=== PATIENT | male | born 1935 | race Caucasian/White ===

== ENCOUNTER → 2016-09-23 | Outpatient (CLI) | payer MEDICARE ==
[~2016-09-23] MED LIST: ACETAMINOPHEN PO; AMIODARONE HCL200 MG PO; AMIODARONE PO; AMLODIPINE BESY10 MG PO; ASPIRIN PO; ASPIRIN81 M2 PO; ATORVASTATIN CA40 MG PO; AVODART0.5 MG PO; BAYER ASPIRIN325 M1 PO; BUMEX PO; CALCIUM ACETAT667 M1 PO; CALCIUM ACETAT667 M2 PO; CARDURA2 MG PO; CHEWABLE ASPIRI81 MG PO; COMBIVENT RESPIM4 GM INH; COMBIVENT14.7 GM INH; DOCU SOFT100 M1 PO; DUTASTERIDE0.5 MG PO; ETHYL CHLORI103.5 ML TOP; FERROUS SULFATE PO; FINASTERIDE5 M1 PO; FINASTERIDE5 MG PO; FLOMAX0.4 M1 PO; FLONASE 0.05% N16 G1; FLOVENT DISKU250 MCG IH; FUROSEMIDE80 MG PO; GLUCOTROL PO; HCTZ PO; HYDRALAZINE HCL25 MG PO; HYDROCHLOROTHIA25 MG PO; ISORDIL PO; ISORDIL TEMBIDS40 M1 PO; ISORDIL10 MG PO; ISOSORBIDE DINI40 MG PO; KADIAN50 MG PO; KEFLEX500 MG PO; LASIX PO; LASIX80 MG PO; LEVAQUIN PO; LIPITOR PO; LIPITOR40 MG PO; LISINOPRIL PO; LISINOPRIL10 MG PO; LISINOPRIL5 MG PO; LODINE500 M1 PO; LOPRESSOR PO; METOPROLOL PO; METOPROLOL SUCC50 MG PO; MIRALAX119 GM PO; MONTELUKAST SOD10 MG PO; MUCOSA400 MG PO; NEURONTIN300 MG PO; NITROGLYCERIN0.4 MG SL; NITROSTAT0.4 MG SL; NORCO1 TAB 10/3 PO; NORVASC PO; OMEPRAZOLE40 M1 PO; OMEPRAZOLE40 MG PO; OXYGEN INH; PHOSLO667 MG PO; PRAVACHOL80 MG PO; PREDNISOLONE5 MG PO; PRILOSEC20 M1 PO; PRINIVIL40 MG PO; PROAIR RESPICL90 MCG; PROTONIX PO; ST. JOSEPH ASP325 MG PO; SYMBICORT INH; TOPROL XL PO; ZOLMITRIPTAN5 MG PO; ZYRTEC5 M2 PO; [UNRECOGNIZED DRUG - OTHER] TOP
--- NOTE | ~2016-09-23 | XA170 ---
[facility] A Service of [facility] RADIOLOGY TEXT RESULTS PATIENT: JOSE CARLOS MORAN LOCATION: [facility] : 36 UNIT #: [id number] AGE: [address]: Medardo Christensen MD SEX: M ORDER DR: [id number] [facility]. [place], [place] [address] [id number] O MR#: [id number] Acc #: [id number] NAME: JOSE CARLOS MORAN. : 1935 SEX: M STUDY DATE/TIME: 09/23/2016 8:14 UNIT: [facility] ROOM: STUDY DESCRIPTION: XA Paracentesis W Image Attending Physician: Medardo Christensen M.D. Ordering Physician: Medardo Christensen M.D. Primary Care Physician: Claudio Gaming M.D. MEDICAL IMAGING REPORT This report is preliminary unless electronic signature is present EXAM Ultrasound-guided paracentesis. DATE OF EXAM 09/23/2016 CLINICAL HISTORY Ascites PROCEDURE Informed consent was obtained and the skin site was selected and marked, sterilely prepped and draped and locally anesthetized. Paracentesis was performed with the [employer] needle catheter and 10.9 L of fluid removed, and there are no complications. IMPRESSION Successful left lower quadrant ultrasound guided paracentesis with removal of 10.9 L of fluid without complication. Dictated by... Jorge Parnell M.D. THIS IS AN ELECTRONICALLY VERIFIED REPORT Jorge Parnell M.D. at 09/28/2016 5:01 PM JOSUE/devon TD: 09/25/2016 21:59 JOB #: [id number] MEDICAL IMAGING REPORT [facility] A Service [facility] RADIOLOGY TEXT RESULTS PATIENT: JOSE CARLOS MORAN LOCATION: [facility] : 36 UNIT #: [id number] AGE: [address]: Medardo Christensen MD SEX: M ORDER DR: COPY
== END | disposition home or self-care (01) ==
LOC: CIVR 07:05
PROC: 0W9G3ZX Drainage of Peritoneal Cavity, Percutaneous Approach, Diagnostic (ICD-10-PCS; principal; 2016-09-23)
DX: R18.8 Other ascites (principal)

== ENCOUNTER → 2016-09-25 | Day surgery (SDC) | payer MEDICARE ==
--- NOTE | ~2016-09-25 | OR ---
Unit #: [id number] #: [id number] Patient: JOSE CARLOS MORAN [id number] [place], [place] [address] [id number] O MR#: [id number] NAME: JOSE CARLOS MORAN. ROOM: Date of Procedure: 09/25/2016 Admission Date: 09/25/2016 Surgeon: Medardo Christensen M.D. : 1935 Attending Physician: Medardo Christensen M.D. Primary Care Physician: Claudio Gaming M.D. OPERATIVE REPORT PROCEDURE PERFORMED Esophagogastroduodenoscopy with biopsy and colonoscopy with snare polypectomy. INDICATIONS FOR PROCEDURE A 80-year-old gentleman with average risk for colorectal cancer, also with cirrhosis of liver, undergoing evaluation for varices as well as colonoscopy. MEDICATIONS Monitored anesthesia. POSTOPERATIVE FINDINGS 1. No varices were seen. Diffuse mild esophagitis along with diffuse gastropathy, biopsies taken. 2. Normal duodenum and distal duodenum. 3. Polyp, cecum x1, about 5 mm, snared and sent for pathology. 4. Large lipoma on the posterior leaf of the ileocecal valve. 5. Rectum, polyp x2, snared and sent for histopathology. 6. Polyp, transverse colon x2, snared and sent for histopathology. They were all about 4 to 6 mm in size. 7. Prep was poor. Some areas not well visualized. PLAN Repeat colonoscopy in 3 years. DESCRIPTION OF PROCEDURE The patient was explained of the procedure, risks, and benefits along with the risks and benefits of anesthesia. He was brought to the endoscopy room. Propofol anesthesia was given. Bite block was placed. The scope was passed down the mouth into the esophagus, stomach, duodenum, and distal duodenum. Findings as described. Biopsies taken in the stomach. Gently, the scope was pulled out. He tolerated it well. At this time, he was turned around and repositioned for colonoscopy. Rectal exam was done, which was normal. Colonoscope was lubricated, passed up the rectum, advanced under direct vision all the way to the cecum. Cecum was identified by ileocecal valve and appendiceal orifice. Multiple polyps were seen. Some areas not well visualized. I retroflexed in the rectum, small hemorrhoids seen. Scope was gently pulled out. He tolerated it well. Unit #: [id number] #: [id number] Patient: JOSE CARLOS MORAN Dictated by... Zulema Engel/romel TD: 09/25/2016 22:20 JOB #: [id number] OPERATIVE REPORT X Medardo Christensen MD X PROCEDURE OPERATIVE NOTE
== END | disposition home or self-care (01) ==
LOC: COPS 07:48
DX: Z12.11 Encounter for screening for malignant neoplasm of colon (principal); K20.9 Esophagitis, unspecified; K29.50 Unspecified chronic gastritis without bleeding; D12.3 Benign neoplasm of transverse colon; K62.1 Rectal polyp; K31.9 Disease of stomach and duodenum, unspecified; D17.79 Benign lipomatous neoplasm of other sites; K74.60 Unspecified cirrhosis of liver; J44.9 Chronic obstructive pulmonary disease, unspecified; I10 Essential (primary) hypertension; I25.2 Old myocardial infarction; Z85.51 Personal history of malignant neoplasm of bladder
CPT/HCPCS: 88305; 88312

== ENCOUNTER 2016-10-09 04:12 | Inpatient (IN) | payer MEDICARE ==
--- NOTE | ~2016-10-09 | CO ---
Unit #: [id number] #: [id number] Patient: JOSE CARLOS MORAN [id number] [facility]. [place], [place] [address] [id number] I MR#: [id number] NAME: JOSE CARLOS MORAN. ROOM: 305 Age: 80 Sex: M Admission Date: 10/09/2016 : 1935 Attending Physician: Anthony Kerns M.D. Primary Care Physician: Claudio Gaming M.D. Consultation Date: 10/13/2016 CONSULTATION REPORT REASON FOR CONSULTATION Followup. DISCUSSION Mr. Lau is a 80-year-old male, seen on 10/13/2016. The patient in room [address] [facility], seen on 10/13/2016. The patient just completed dialysis. He is pleasant and cooperative. Affect bright. Mood good. No agitation or aggression. The patient reports sleeping good. Tolerating medication fairly well. Denied any complaints. REVIEW OF SYSTEMS Complete review of systems unremarkable. MENTAL STATUS EXAMINATION General appearance, the patient dressed in hospital attire, lying comfortably in bed. The patient was cooperative during the dialysis. Attention span and concentration, fair. Speech, regular rate. Oriented in place and person. Mood and affect were labile. Thought process was circumstantial. Thought content, guarded. Recent and remote memory, poor. Language, able to name object. Fund of knowledge, impaired. Insight and judgment, fair to slightly impaired. 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 ASSESSMENT/PLAN 1. Supportive psychotherapy and psychoeducation provided to the patient. 2. Educated about benefits and side effects of medication and course and prognosis of illness. Continue with the current treatment. If needed, consider further adjustment of medication. Dictated by... Cain Carlson M.D. MIKI/romel TD: 10/14/2016 04:54 JOB #: [id number] Unit #: [id number] #: [id number] Patient: JOSE CARLOS MORAN CONSULTATION REPORT Page 1 of 1 X Cain Carlson MD CONSULTATION REPORT
--- NOTE | ~2016-10-09 | CR72 ---
[facility] A Service of [facility] RADIOLOGY TEXT RESULTS PATIENT: JOSE CARLOS MORAN LOCATION: [facility] : 36 UNIT #: [id number] AGE: [address]: Anthony Kerns MD SEX: M ORDER DR: [id number] [facility] [address] [facility]. [place], [place] [address] [id number] I MR#: [id number] Acc #: [id number] NAME: JOSE CARLOS MORAN. : 1935 SEX: M STUDY DATE/TIME: 10/09/2016 6:28 UNIT: [facility] ROOM: 81304 STUDY DESCRIPTION: CR Chest Single View Portable Attending Physician: Anthony Kerns M.D. Ordering Physician: Clark Hernandez D.O. Primary Care Physician: Claudio Gaming M.D. MEDICAL IMAGING REPORT This report is preliminary unless electronic signature is present EXAM Portable chest 10/09/2016 HISTORY 80-year-old male with shortness of air beginning today. COMPARISON Chest 10/09/1978 0424 hours. FINDINGS Frontal chest again demonstrates marked cardiomegaly with mild central vascular congestion. Questionable slight interval worsening of bilateral interstitial opacities. Findings could represent worsening congestive failure. Correlation with clinical symptoms recommended. No pneumothorax. No large pleural effusion. IMPRESSION Stable marked cardiomegaly with associated central vascular congestion. Questionable slight interval worsening of diffuse bilateral interstitial opacities. Findings could represent developing congestive failure in the appropriate clinical setting. Correlation recommended. Dictated by... Bryon Colorado M.D. THIS IS AN ELECTRONICALLY VERIFIED REPORT Bryon Colorado M.D. at 10/09/2016 3:45 PM SKYLER/joey TD: 10/09/2016 09:09 JOB #: [id number] [facility] A Service of [facility] RADIOLOGY TEXT RESULTS PATIENT: JOSE CARLOS MORAN LOCATION: [facility] : 36 UNIT #: [id number] AGE: [address]: Anthony Kerns MD SEX: M ORDER DR: MEDICAL IMAGING REPORT Page 1 of 1 COPY
--- NOTE | ~2016-10-09 | CO ---
Unit #: [id number] #: [id number] Patient: JOSE CARLOS MORAN [id number] [facility]. [place] [address] [id number] [facility]. [place], [place] [address] [id number] I MR#: [id number] NAME: JOSE CARLOS MORAN ROOM: 81513 Age: 80 Sex: M Admission Date: 10/09/2016 : 1935 Attending Physician: Anthony Kerns M.D. Primary Care Physician: Claudio Gaming M.D. CONSULTATION REPORT REASON FOR CONSULT Elevated troponin. HISTORY OF PRESENT ILLNESS This is a 79-year-old white male well known to Dr. Yo who presented to the emergency room via EMS after his called daughter. She woke up at 3 a.m. to him moaning and went in to check on him and he was unresponsive. He had altered mental status change. His eyes were open and glassed over. He would not talk to her. All he would do was moan. He would not really move. Apparently, earlier in the night around 11 o'clock he was watching the [employer] basketball games and he was fine. He went to bed and then his daughter awoke hearing noises from his room and went to check on him. He was, as stated above, had altered mental status change. She was worried and called 911. On arrival to the emergency room, it was found that his troponin was 0.10 and, on repeat, troponin 0.11. He did test positive for influenza A. Head CT was unremarkable. Lactic level was 5.2. However, to note, he is afebrile. Temperature, on arrival to the emergency room, was 97.2. Blood pressure on arrival was elevated at 179/76. During my examination, it had returned to normal 107/57. This gentleman has a previous medical history of permanent AFib but is not on anticoagulation due to chronic anemia, frequent falls and noncompliance. He has tachybrady syndrome, history of nonsustained V-tach, hyperlipidemia, hypotension secondary to hemodialysis, chronic kidney disease stage [address] Mederos. He is on hemodialysis Tuesdays, and Saturdays. He has had a history of a PA in the past, systolic CHF, anemia of chronic disease, chronic liver cirrhosis secondary to remote alcohol abuse and he gets monthly paracentesis. The last paracentesis was two weeks ago. He is a formed tobacco abuser. He quit smoking four years ago. He also has a history of bladder cancer, COPD and his home O2 dependent at home. Please note that he has a history of type 2 diabetes. He had an echo, August of 2015, which showed mildly reduced LV function. EF was 45 to 50% with moderate TR and an increased right ventricular systolic pressure. RVSP was 54.9 mmHg. SOCIAL HISTORY He lives with his daughter who provides care for him. However, he is able to drive himself to dialysis three times a week. Otherwise, he is pretty immobile at home. He goes from his bed to a chair. His daughter states he does not really ambulate at all. He is a former smoker. He quit four years ago. There is remote history of alcohol abuse. Unit #: [id number] #: [id number] Patient: JOSE CARLOS MORAN FAMILY HISTORY Noncontributory. ALLERGIES None. HOME MEDICATIONS 1. Isosorbide dinitrate extended release 40 mg b.i.d. 2. Aspirin 325 mg daily. 3. Calcium 660 mg four tablets three times a day. He takes it with meals. 4. Atorvastatin 40 mg at bedtime. 5. Finasteride 5 mg at bedtime. 6. Dutasteride 0.5 mg which is Avodart one time daily at bedtime. 7. Lisinopril 5 mg daily. 8. Symbicort 160/4.5 mcg b.i.d. 9. Combivent Respimat 4 g three times a day. 10. Nitrostat as needed which is 0.4 mg tablets sublingually. REVIEW OF SYSTEMS A complete 10-point review of systems is done. He denied any chest pain. He denied any shortness of breath other than what is chronic and normal for him. He denies palpitations. He denies any memory of having altered mental status. He is currently in restraints and his confused why he needs to be in restraints. He does report dyspnea on exertion. He reports no orthopnea and he is pretty much laying flat in the ER and is not having any trouble breathing. He denies any dizziness. He denies any syncope. He denies any bilateral lower extremity swelling. He does state he has abdominal distension which is chronic in nature and he told me that he had a paracentesis two weeks ago. PHYSICAL EXAMINATION GENERAL APPEARANCE: He is in isolation and was seen in T5 down in the ER. He was in restraints at the time. Neurally, he did answer appropriately most questions and he does follow commands. He is awake and alert. He has kind of a poor memory. VITAL SIGNS: Temperature 98.4. Heart rate 72. Respirations 26. Blood pressure 107/57. His admission weight was 7.27 kg. His BMI is 22. HEENT: Head is normocephalic, atraumatic. Pupils are equal, round and reactive to light and accommodation. Extraocular movements seem to be intact. Oral mucosa membrane was dry. Poor dentition. NECK: Supple with no JVD noted. No thyromegaly but a faint right carotid bruit heard. LUNGS: Bilaterally diminished in the bases with poor inspiratory effort. CARDIOVASCULAR: Irregularly irregular rhythm. He does have a 2/6 systolic ejection murmur heard best at the apex. ABDOMEN: Rounded and distended but it is soft and he states that it is not tender at all to palpation. He does have positive bowel sounds. EXTREMITIES: No edema. DIAGNOSTIC STUDIES LABORATORY: CK MB 9.1. Troponin 0.10 and 0.11 on repeat. PT 11.6, INR 1.1. Sodium 138, potassium 3.2, chloride 99, CO2 22, BUN 29, creatinine 4.7, glucose 183. Hemoglobin 9.4, hematocrit 31.5, WBC 9.1, platelet count 140. Influenza A was positive and lactate was 5.2. IMAGING: CT of the head was unremarkable. Chest x-ray, 10/09/16, showed no active disease. Stable marked cardiomegaly. Unit #: [id number] #: [id number] Patient: JOSE CARLOS MORAN CARDIOVASCULAR: EKG, 10/09/16, showed AFib with a right bundle branch block. IMPRESSION 1. Toxic versus metabolic encephalopathy. 2. Sepsis. 3. End-stage renal disease. 4. Permanent AFib. 5. Chronic liver cirrhosis. 6. Elevated troponin. 7. Hypokalemia. 8. Altered mental status. 9. History of tachybrady syndrome. 10. Hyperlipidemia. PLAN Cardiology has been asked to follow him for elevated troponin. We will trend his troponin; however, he does not have any chest pain or any symptoms of angina at this time and his EKG was unremarkable for any ST elevation or depression. His AFib is rate controlled and he is not on anticoagulation chronically. However, we will start Lovenox 1 mg/kg subcu b.i.d. and full strength aspirin while he is in the hospital. I will check a fasting lipid panel. He is on atorvastatin 40 mg at home. I will continue that dose. We will check an EKG, troponin, BMP, mag in the morning. Check a 2D echo today. Currently, he is restrained. I feel like those restraints could probably come off today. The nurse reports that he will get out of bed so we will leave those restraints on. Lisinopril 5 mg daily which is his home dose. We will need to hold that for systolic less than 100. However, he was very hypertensive when he arrived. I just want to be cautious with his advanced age and the fact that he is on dialysis. Fluid status and blood pressure would be concerning. Currently, he has a catheter. I have written to discontinue the catheter for the fact that he is in end-stage renal disease and probably does not make enough urine to really support indwelling catheter placement for risk of infection. He can eat a Heart Healthy diet. I also wrote to get a bilateral carotid Doppler ultrasound for his altered mental status change. Further plan per Dr. Yo. Thank you for this consult. We will continue to follow him through hospitalization. Also, further plan status post results that are pending. Dictated by... Barbie Vásquez APRN for Zulema Gusman TD: 10/09/2016 12:25 JOB #: [id number] Unit #: [id number] #: [id number] Patient: JOSE CARLOS MORAN CONSULTATION REPORT Page 1 of 1 X X CONSULTATION REPORT
--- NOTE | ~2016-10-09 | DS ---
Unit #: [id number] #: [id number] Patient: JOSE CARLOS MORAN [id number] [place], [place] [address] [id number] I MR#: [id number] NAME: JOSE CARLOS MORAN. ROOM: 305 Age: 80 Sex: M Admission Date: 10/09/2016 : 1935 Discharge Date: 10/13/2016 Attending Physician: Anthony Kerns M.D. Primary Care Physician: Claudio Gaming M.D. DISCHARGE SUMMARY REASON FOR ADMISSION Mental status change. HISTORY OF PRESENT ILLNESS/HOSPITAL COURSE The patient is a 80-year-old male, one day prior to admission was watching a basketball game, went to sleep, and woke up at 4:30 a.m. in acute confusional state. He was walking with a very different gait and subsequently was brought to the hospital for further evaluation. Initial CT of the head showed no acute process. Stroke protocol was initiated. Dr. rOr was subsequently consulted. The patient underwent ultrasound of his bilateral carotids on 10/09/2016, which did reveal plaque with narrowing of the right internal carotid artery 50% to 69%. There was left mid internal carotid artery with similar stenosis 50% to 69% seen. Vascular Services were consulted, they recommended outpatient 6-month followup for routine monitoring. He was also noted to be flu A positive. He was maintained on Tamiflu initially. Concern for possible acute respiratory failure as well as the pneumonia was made secondary to his mental status changes, we placed consultation to [facility] for further evaluation. Initially, placed on IV antibiotics as well as Tamiflu and eventually these were discontinued. His initial chest x-ray raised the possibility of heart failure/fluid overload versus bibasilar infiltrates. IV antibiotics were later discontinued. Consultation was also placed to Nephrology Services as the patient is on routine hemodialysis. He underwent hemodialysis per routine care. Dr. Mederos saw and evaluated the patient while he was here. He does have a prior history of cirrhosis as well as recurrent ascites. He underwent paracentesis per his normal routine as well, it was approximately 9 L which was removed. He was also noted to have elevated troponin levels consistent with NSTEMI, his peak troponin I believe was 0.77. In regard to the same, we placed consultation to Cardiology Services secondary to associated comorbid conditions as well as chronic medical conditions and recommendation was made for cardiac catheterization. The patient refused and stated that he was otherwise well and he did not want Unit #: [id number] #: [id number] Patient: JOSE CARLOS MORAN any further studies. At this point in time, he is now alert and oriented x3. He is mobile within the room. PT and OT services have now cleared him. He is currently breathing on room air. He has been treated for influenza A with a 5-day course. His antibiotics have been discontinued. It seems more likely fluid overload as the cause of the abnormality seen on initial chest x-ray. He does have a prior history of permanent atrial fibrillation, but he is a poor anticoagulation candidate secondary to chronic deconditioning. Cardiology, Renal, Pulmonary as well as Vascular Services have all felt the patient is now stable for discharge. Overall his long-term prognosis is guarded. FINAL DISCHARGE DIAGNOSES 1. Toxic metabolic encephalopathy. 2. Influenza A. 3. Bibasilar atelectasis versus pneumonia. Currently, no antibiotics needed. 4. Permanent atrial fibrillation. 5. Fluid overload. 6. End-stage renal disease. 7. Ascites. 8. Cirrhosis. 9. Status post paracentesis this hospital admission with 900 mL removed. 10. Systolic heart failure with an ejection fraction of 40% to 45%. 11. Nonsustained ventricular tachycardia seen on heart monitor. 12. Peak troponin/qsa-LR-vsljzhe elevation myocardial infarction of 0.78. 13. Likely mild cognitive impairment. FINAL DISCHARGE MEDICATIONS Amiodarone 200 mg p.o. b.i.d. x7 days then daily, Lipitor 40 mg p.o. q.h.s., lisinopril 5 mg p.o. daily, Avodart 0.5 mg p.o. q.h.s., aspirin 81 mg p.o. daily, finasteride 5 mg p.o. q.h.s., calcium acetate 667 mg p.o. t.i.d. with meals. DISCHARGE CONDITION Stable. DISCHARGE DISPOSITION Home. FOLLOWUP PCP in 7 to 10 days. Follow up with Vascular Services for bilateral carotid ultrasound 6 months. Follow up Cardiology in 4 to 6 weeks. Dictated by... Anthony Kerns M.D. JULI/romel TD: 10/14/2016 00:29 JOB #: [id number] Unit #: [id number] #: [id number] Patient: JOSE CARLOS MORAN Nic DISCHARGE SUMMARY Page 1 of 1 X Anthony Kerns MD X DISCHARGE SUMMARY
--- NOTE | ~2016-10-09 | CR72 ---
[facility] A Service of [facility] RADIOLOGY TEXT RESULTS PATIENT: JOSE CARLOS MORAN LOCATION: [facility] 305- : 36 UNIT #: [id number] AGE: [address]: Anthony Kerns MD SEX: M ORDER DR: [id number] [facility] [address] [facility]. [place], [place] [address] [id number] I MR#: [id number] Acc #: [id number] NAME: JOSE CARLOS MORAN. : 1935 SEX: M STUDY DATE/TIME: 10/10/2016 3:38 UNIT: [facility] ROOM: [facility] STUDY DESCRIPTION: CR Chest Single View Portable Attending Physician: Anthony Kerns M.D. Ordering Physician: Mamadou Garrett M.D. Primary Care Physician: Claudio Gaming M.D. MEDICAL IMAGING REPORT This report is preliminary unless electronic signature is present EXAM Frontal chest, 10/10/2016. INDICATION 80-year-old male with influenza-A, shortness of air, confusion, altered mental status since yesterday. Stage IV renal disease. TECHNIQUE Frontal chest was performed and compared with 10/09/2016. FINDINGS The heart is enlarged and stable. The aorta demonstrates atherosclerotic change. There are worsening more confluent opacities in the midlung zone on the right, suspicious for pneumonia. There is old healed granulomatous disease. No distinct evidence of volume overload or effusion and no pneumothorax. IMPRESSION Findings suspicious for developing pneumonia in the midlung zone on the right. Persistent cardiomegaly. No pneumothorax. Dictated by... Aftab Stark M.D. THIS IS AN ELECTRONICALLY VERIFIED REPORT Aftab Stark M.D. at 10/10/2016 10:12 PM NEO/ronnie TD: 10/10/2016 15:18 JOB #: [id number] [facility] A Service of [facility] RADIOLOGY TEXT RESULTS PATIENT: JOSE CARLOS MORAN LOCATION: [facility] 305-01 : 36 UNIT #: [id number] AGE: [address]: Anthony Kerns MD SEX: M ORDER DR: MEDICAL IMAGING REPORT Page 1 of 1 COPY
--- NOTE | ~2016-10-09 | CO ---
Unit #: [id number] #: [id number] Patient: SID MORAN [id number] [facility] [address] [facility]. [place], [place] [address] [id number] I MR#: [id number] NAME: SID MORAN. ROOM: 305 Age: 80 Sex: M Admission Date: 10/09/2016 : 1935 Attending Physician: Anthony Kerns M.D. Primary Care Physician: Claudio Gaming M.D. Consultation Date: 10/11/2016 CONSULTATION REPORT REASON FOR CONSULTATION Confusion, agitation. HISTORY OF PRESENT ILLNESS Mr. Sid Swan is a 80-year-old male, seen on 10/11/2016 at [facility] in room 305. The patient was pleasant and cooperative during interview. Still having problem with confusion, mood lability, but able to answer questions. When the patient was admitted on 10/09/2016, he was very confused, staring, guarded, paranoid, also obtained information from the patient's daughter who was at the bedside. The patient's daughter reports having problem with mood lability and agitation increase lately. She reported that he was mentally very clear and no problem with his memory, but there was a sudden decline in mental state. Then, the patient was admitted to hospital. The patient at that time was talking to various people in the room, who were not present, attending to internal stimuli, increasingly confused which seems to be getting better. The patient currently denied any thoughts of harming self or others. Denied any auditory or visual hallucination. PAST PSYCHIATRIC HISTORY Unremarkable for any history of dementia, depression, anxiety. MEDICAL HISTORY Remarkable for history of end-stage renal disease, hypertension, prior history of atrial fibrillation, diabetes type 2, prior history of bladder cancer, prior history of myocardial infarction, hyperlipidemia. MEDICATION HISTORY The patient is on lisinopril, Nitrostat, oxygen, calcium, Avodart, Lipitor, finasteride, hydralazine, and Isordil. ALLERGIES No known drug allergies. FAMILY HISTORY AND SOCIAL HISTORY The patient lives at home, has a good support from his daughter. No history of any abuse. No history of any substance abuse. REVIEW OF SYSTEMS Complete review of systems is unremarkable. MENTAL STATUS EXAMINATION General appearance, the patient dressed in hospital attire, lying comfortably. Attention span and concentration were poor. Speech, loud. Unit #: [id number] #: [id number] Patient: SID MORAN Oriented in place and person. Mood and affect were labile. Thought process was circumstantial. Thought content, the patient denied any thoughts of harming self or others, but somewhat guarded. Recent and remote memory, fair to poor. Language, able to name object and repeat phrases. Fund of knowledge, fair to slightly impaired. Insight and judgment, fair to slightly impaired. DIAGNOSES Psychiatric: 1. Delirium, F05, improving. 2. Psychosis, not otherwise specified, F29.0. 3. 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 Secondary diagnosis: Deferred. Medical diagnosis: Please refer to H and P. Stressors: Psychosocial stressors. ASSESSMENT/PLAN 1. Supportive psychotherapy and psychoeducation provided to patient and family. 2. Advised to continue with current treatment with a plan to add Haldol 0.5 mg at bedtime. If needed, plan to adjust the medication further to help with the above-mentioned symptoms of delirium/psychosis. We will continue to follow. If needed, consider further adjustment of medication. Please feel free to call if any questions, telephone #[phone]. Dictated by... Zulema Bocanegra/romel TD: 10/12/2016 02:54 JOB #: [id number] CONSULTATION REPORT Page 1 of 1 X Cain Carlson MD X CONSULTATION REPORT
--- NOTE | ~2016-10-09 | CR72 ---
[facility] A Service of [facility] RADIOLOGY TEXT RESULTS PATIENT: JOSE CARLOS MORAN LOCATION: [facility] 305-01 : 36 UNIT #: [id number] AGE: [address]: Anthony Kerns MD SEX: M ORDER DR: [id number] [facility] [address] [facility]. [place], [place] [address] [id number] I MR#: [id number] Acc #: [id number] NAME: JOSE CARLOS MORAN. : 1935 SEX: M STUDY DATE/TIME: 10/09/2016 4:24 UNIT: CEDOF ROOM: 03196 STUDY DESCRIPTION: CR Chest Single View Portable Attending Physician: Anthony Kerns M.D. Ordering Physician: Clark Hernandez D.O. Primary Care Physician: Claudio Gaming M.D. MEDICAL IMAGING REPORT This report is preliminary unless electronic signature is present EXAM AP portable chest, 10/12/2016 HISTORY 80-year-old male in the ED with acute onset mental status changes this evening. TECHNIQUE AP portable chest x-ray. FINDINGS Marked cardiomegaly is stable along with central pulmonary artery enlargement. No definite acute pulmonary infiltrate or pleural effusion. Benign calcified granulomas right midlung and right hilum. IMPRESSION No definite active disease. Stable marked cardiomegaly. Dictated by... José Esteban M.D. THIS IS AN ELECTRONICALLY VERIFIED REPORT José Esteban M.D. at 10/13/2016 5:01 PM Natalie TD: 10/09/2016 08:33 JOB #: [id number] MEDICAL IMAGING REPORT Page 1 of 1 COPY
--- NOTE | ~2016-10-09 | EE ---
Unit #: [id number] #: [id number] Patient: JOSE CARLOS MORAN [id number] [address] [place], [place] [address] [id number] I MR#: [id number] NAME: JOSE CARLOS MORAN. : 1935 SEX: M STUDY DATE/TIME: UNIT: C3A PCU ROOM: 305 STUDY DESCRIPTION: EEG Attending Physician: Anthony Kerns M.D. Referring Physician: Cecily Ritchie A.P.R.N. Primary Care Physician: Claudio Gaming M.D. NEURODIAGNOSTICS REPORT EXAM EEG REASON FOR THE STUDY Episode of confusion. EEG DESCRIPTION This is an inpatient, digitally recorded multi-montage adult EEG with leads placed according to the International 10-20 System. Hyperventilation and photic stimulation was not done. With the patient fully aroused, there is 8 to 8.5 Hz posterior background. The patient did become drowsy and later on stage 2 sleep was seen. No clearcut interictal discharges or clinical events were seen. Some transients and artifacts were seen but nothing really suggesting clearcut epileptiform discharges. Hyperventilation and photic stimulation was not done. IMPRESSION This is essentially a normal adult awake and asleep EEG. An EEG like this does not rule out epilepsy. Clinical correlation is recommended. Dictated by... Zulema Pacheco/inge TD: 10/12/2016 10:20 JOB #: [id number] NEURODIAGNOSTICS REPORT Page 1 of 1 X Orlando Orr MD NEURODIAGNOSTICS REPORT
--- NOTE | ~2016-10-09 | HP ---
Unit #: [id number] #: [id number] Patient: JOSE CARLOS MORAN [id number] [address] [place], [place] [address] [id number] I MR#: [id number] NAME: JOSE CARLOS MORAN. ROOM: [facility] Age: 80 Sex: M Admission Date: 10/09/2016 : 1935 Attending Physician: Anthony Kerns M.D. Primary Care Physician: Claudio Gaming M.D. HISTORY AND PHYSICAL REASON FOR ADMISSION Mental status change. HISTORY OF PRESENT ILLNESS The patient is a 80-year-old male, who apparently last night, was watching the basketball games in his usual state of health, perhaps consider a baseline to be alert and oriented x2. He subsequently went to sleep earlier this morning around 4:30 a.m. He began having altered mental status, increased confusion. Daughter found him to be talking to various people in the room who were not present. She became concerned for possible underlying infectious etiology or otherwise in consideration of stroke and subsequently, the patient was brought to the emergency room for evaluation. Initially, the patient was evaluated in the emergency room, underwent CT of head, which had not shown any acute process. Review was performed with Dr. Orr of Neurology Services, who recommended admission for further observation. Initial laboratory studies, however, yielded chest x-ray showing bilateral infiltrates, influenza A positive, as well as an elevated lactic acid level of 5.2. Also noted was his creatinine that was 4.7 with a GFR of 11. He is a hemodialysis patient, followed by Dr. Hawk as an outpatient. PAST MEDICAL HISTORY End-stage renal disease, hypertension, prior history of atrial fibrillation, diabetes, type 2, prior history of bladder cancer, prior history of myocardial infarction, hyperlipidemia. PAST SURGICAL HISTORY Bladder cancer/tumor removal, right inguinal hernia repair, left arm shunt, bilateral cataract surgery. HOME MEDICATIONS Isordil, hydralazine, aspirin, calcium, Avodart, Lipitor, finasteride, lisinopril, Nitrostat, oxygen. ALLERGIES No known drug allergies. SOCIAL HISTORY The patient resides at home per report. Unit #: [id number] #: [id number] Patient: JOSE CARLOS MORAN FAMILY HISTORY Reviewed, noncontributory, nonpertinent. REVIEW OF SYSTEMS As noted above in the HPI. Please note, there is currently no family members were present at bedside and therefore both history and physical exam, past medical history, as well as review of systems has been put together after chart review, as well as discussion with ER staff. PHYSICAL EXAMINATION VITAL SIGNS: Temperature 97.7, pulse 86, respiratory rate 20, blood pressure 139/76. GENERAL APPEARANCE: The patient is a frail, 80-year-old male, who is confused, disoriented and trying to get out of bed. HEENT: Head exam; atraumatic, normocephalic. Ear exam; tympanic membranes are pearly. No erythema or injection. NECK: Supple. CVS: S1, S2. Irregularly irregular. RESPIRATORY: Coarse. GI/ABDOMEN: Nontender, nondistended. LOWER EXTREMITY: No calf tenderness. No edema noted. PSYCHIATRIC: The patient is alert. He is combative in nature. He does not answer appropriately. DIAGNOSTIC STUDIES LABORATORY RESULTS: At the time of admission, please see above. INITIAL ADMISSION DIAGNOSES 1. Acute encephalopathy/mental status change, likely multifactorial in origin secondary to underlying uremia, possible sepsis, and bilateral pneumonia. 2. History of end-stage renal disease, on dialysis, followed by Dr. Hawk. 3. Atrial fibrillation/coronary artery disease/myocardial infarction history, followed by [facility]. 4. chronic obstructive pulmonary disease, end stage, on home O2. 5. Hyperlipidemia. 6. Prior history of bladder cancer. 7. Presumed aspiration pneumonia. 8. Elevated lactic acid level on admission. 9. Systemic inflammatory response syndrome criteria. 10. Influenza A. 11. Anemia, likely of chronic disease. 12. Elevated troponin/non-ST segment elevation myocardial infarction. PLAN Hospital admission, ICU, begin HCAP protocol, sepsis protocol. Consultations have been already placed to Dr. Yo, Dr. Ahumada, Dr. Orr, Dr. Hawk, in consideration of above. No family members are currently present. I do not have a clear code status on this patient. I will wait for family members to arrive and then further hospital course to follow. Dictated by uZlema MillerN/haileyl Unit #: [id number] #: [id number] Patient: JOSE CARLOS MORAN TD: 10/10/2016 05:45 JOB #: [id number] HISTORY AND PHYSICAL Page 1 of 1 X Anthony Kerns MD X HISTORY AND PHYSICAL
--- NOTE | ~2016-10-09 | CO ---
Unit #: [id number] #: [id number] Patient: JOSE CARLOS SAINZ [id number] [address] [place], [place] [address] [id number] I MR#: [id number] NAME: JOSE CARLOS SAINZ. ROOM: 305 Age: 80 Sex: M Admission Date: 10/09/2016 : 1935 Attending Physician: Anthony Kerns M.D. Primary Care Physician: Claudio Gaming M.D. Consultation Date: 10/12/2016 CONSULTATION REPORT REASON FOR CONSULTATION Carotid stenosis. HISTORY OF PRESENT ILLNESS Mr. Sainz is the patient known to us. He is a 80-year-old male with a history of chronic kidney disease. He underwent creation of a left brachiocephalic fistula by Dr. Roper. He was admitted with confusion and decreased level of consciousness as part of his evaluation. He underwent carotid duplex demonstrating stenosis. He also has a history of cirrhosis and will be undergone paracentesis and was also identified with flu. He denies any symptoms to suggest TIA, CVA, or amaurosis including slurred speech, facial droop, unilateral numbness or weakness, or sudden loss of vision. PAST MEDICAL HISTORY 1. Atrial fibrillation. 2. Chronic kidney disease. 3. Hypertension. 4. COPD. 5. Type 2 diabetes mellitus. 6. History of bladder cancer. 7. Coronary artery disease. 8. Hyperlipidemia. PAST SURGICAL HISTORY 1. Surgical repair for bladder cancer. 2. Right inguinal repair. 3. Left brachiocephalic fistula by Dr. Roper. 4. Cataract surgery. REVIEW OF SYSTEMS Review of systems was completed. The patient was eating lunch and did not want to answer many questions. CONSTITUTIONAL: Feeling better. HEENT: Positive for cataract surgery. PULMONARY: Positive for occasional shortness of air. CARDIAC: Negative. MUSCULOSKELETAL: Negative. NEUROLOGIC: Negative for symptoms of TIA or CVA. GI: Positive for abdominal pain. : Negative. SKIN: Negative for sores or rashes. Unit #: [id number] #: [id number] Patient: JOSE CARLOS SAINZ SOCIAL HISTORY He is a previous smoker, no longer smoked. Lives here in [place]. Denies alcohol or drug use. FAMILY HISTORY Positive for diabetes, hypertension, and cancer. Mother has a history of cancer and father has a history of tuberculosis. ALLERGIES No known drug allergies. MEDICATION Isosorbide dinitrate, aspirin, calcium, atorvastatin, finasteride, Zemplar, Symbicort, Combivent, and Nitrostat. PHYSICAL EXAMINATION VITAL SIGNS: Temperature is 97.4, pulse 64, respirations 17, blood pressure is 122/59. HEENT: Eyes; shows no injection of conjunctivae. Small eyelids. Ear, nose, mouth and throat; he has moist mucous membranes without pallor or cyanosis. Teeth are in poor repair. NECK: There is no JVD. LUNGS: Clear. There are no use of accessory muscles or intercostal retractions. HEART: S1 and S2. Regular rate and rhythm without murmur. VASCULAR: He has bilateral cervical bruits. There is no pulsatile abdominal mass. Radial pulses are palpable. Bilateral femoral pulses are palpable. Right popliteal pulse is palpable. Left popliteal pulse is not palpable. Pedal pulses not palpable on either side. ABDOMEN: Soft without hepatosplenomegaly. SKIN: No hemosiderin deposition or stasis dermatitis or wider dermatosclerosis. No wounds or ulcerations to the lower extremities. Left brachiocephalic fistula has a good thrill. NEUROLOGIC: He is alert, oriented, answers questions appropriately. No focal neuro deficits. MUSCULOSKELETAL: He moves all extremities well without atrophy or abnormal movements. DIAGNOSTIC STUDIES IMAGING STUDIES: Carotid duplex was completed. There is 50% to 69% stenosis of the bilateral internal carotid arteries. Vertebrals are patent with antegrade flow. LABORATORY RESULTS: BUN is 37, creatinine 6.5, GFR 7.4, sodium 140, potassium 5.0. PT is 11.4, INR is 1.1, PTT is 27.1. Hemoglobin is 8.5, hematocrit 28.2, platelets 101, white blood cells are 4.7. IMPRESSION 1. Bilateral asymptomatic carotid stenosis. 2. Cirrhosis. 3. Chronic obstructive pulmonary disease. 4. Chronic kidney disease, status post left arm fistula. RECOMMENDATIONS From stenosis is asymptomatic, it is not high enough to require repair at this time. He is advised to continue not to smoke. He should be on anti-platelet and certain therapy to decrease his risk of neurologic events. He should follow up with Dr. Obrien as an outpatient in 6 months Unit #: [id number] #: [id number] Patient: JOSE CARLOS SAINZ with repeat bilateral carotid ultrasound. Thank you for allowing us to assist in this patient's care. Dictated by... Valencia MirelesPMargaretRLulu for Zulema Ernandez/romel TD: 10/13/2016 04:14 JOB #: [id number] CONSULTATION REPORT Page 1 of 1 X X CONSULTATION REPORT
--- NOTE | ~2016-10-09 | CO ---
Unit #: [id number] #: [id number] Patient: JOSE CARLOS SAINZ [id number] [address] [place], [place] [address] [id number] I MR#: [id number] NAME: JOSE CARLOS SAINZ ROOM: 99844 Age: 80 Sex: M Admission Date: 10/09/2016 : 1935 Attending Physician: Anthony Kerns M.D. Primary Care Physician: Claudio Gaming M.D. CONSULTATION REPORT Mr. Sainz presents with decreased mentation to the emergency room. He had been in his normal health before he became more agitated. He was found crawling in his bed, agitated. He came to the emergency room. Chest x-ray showed cardiomegaly, some mild increased infiltrates. His vital signs revealed O2 saturation on 2 L at 95%, blood pressure is 179/76, pulse was 86, respiratory rate was 20, temperature was 97.7. He apparently was given some Ativan and some Zofran, started on Rocephin, clindamycin and vancomycin. Arterial blood gases revealed a pH of 7.33, pCO2 of 47, pO2 of 81 on 50% Venturi mask. Chemistries were significant for creatinine of 4.7, potassium of 3.2, glucose 183, calcium 8.1, troponin 0.08, ammonia level of 23, lactic acid of 5.2. Acetaminophen, salicylate and alcohol levels were negative. Coags were normal. Troponin was 0.11. White blood cell count was 9100, hematocrit 31.5, platelet count normal. Flu study positive for influenzae A. Urinalysis not done. PAST MEDICAL HISTORY Significant for: 1. COPD with chronic respiratory failure. 2. End stage renal disease, on hemodialysis. 3. Hypertension. 4. Hyperlipidemia. 5. Diabetes. 6. History of bladder cancer - recent cystoscopy negative for recurrence. 7. History of chronic systolic congestive heart failure, ejection fraction about 45%. 8. History of nonsustained V-tach. 9. History of tachybrady syndrome, not on anticoagulation due to falls. 10. Permanent A-fib. 11. Ascites. PAST SURGICAL HISTORY 1. Cystoscopy with biopsy. 2. Inguinal hernia repair. ALLERGIES None known. MEDICATIONS Home medications listed include: 1. Isosorbide dinitrate. 2. Aspirin. 3. Calcium. 4. Atorvastatin. Unit #: [id number] #: [id number] Patient: JOSE CARLOS SAINZ 5. Finasteride. 6. Dutasteride. 7. Lisinopril. 8. Symbicort. 9. Combivent. 10. Nitrostat. SOCIAL HISTORY He is a reformed smoker. No alcohol in four years. Denies illicit drug use. FAMILY HISTORY Mother had cancer, father tuberculosis. REVIEW OF SYSTEMS CONSTITUTIONAL: Denies fever or chills. Denies much in the way of shortness of breath. Denies hemoptysis. CARDIAC: Denies chest pain or palpitations. GI: Denies nausea or vomiting. : No hematuria or dysuria. He has renal failure, on hemodialysis. NEURO: No unilateral weakness or numbness. SKIN: No rashes, no swollen joints. PHYSICAL EXAMINATION GENERAL: White male, obese, in no distress. VITAL SIGNS: Blood pressure 127/66, pulse 80, respiratory rate 16, afebrile. HEENT: Normocephalic, atraumatic. Pupils equal, round, reactive. Sclerae nonicteric. Nasal passages patent. Mucous membranes dry. Mallampati 3. NECK: Supple. Trachea midline. No cervical or supraclavicular lymphadenopathy. LUNGS: Fairly clear to a auscultation and percussion. CARDIAC: Irregular rate and rhythm. Could not appreciate murmur, rub or gallop. ABDOMEN: Nontender. Bowel sounds present. Markedly distended but nontender. Fluid wave felt. EXTREMITIES: Without clubbing, cyanosis or edema. NEURO: Awake, oriented. Follows commands. Moves all extremities. Nothing focal. DIAGNOSTIC STUDIES LABORATORY: Laboratory studies reviewed. IMAGING: Chest x-ray reviewed as noted. IMPRESSION 1. Influenzae A. 2. Toxic metabolic encephalopathy, likely secondary to influenzae A and/or infection. 3. Mild bilateral infiltrate, possibly congestive heart failure versus flu versus pneumonia. 4. End stage renal disease, on hemodialysis. 5. Permanent atrial fibrillation. 6. Diabetes. 7. History of bladder cancer. 8. Chronic systolic congestive heart failure. 9. Nonsustained ventricular tachycardia. Unit #: [id number] #: [id number] Patient: JOSE CARLOS SAINZ 10. Tachybrady syndrome, not on Coumadin due to history of falls. 11. Hypertension. 12. Hyperlipidemia. 13. Chronic obstructive pulmonary disease with chronic respiratory failure, maintained on home O2. PLAN Continue current pulmonary inhalers and nebulizer. O2 to maintain adequate saturation. Will check procalcitonin to see if these mild infiltrates could represent pneumonia. Will also check BNP but expect that to be elevated. Would consider hemodialysis for volume removal to see if that improves chest x-ray. Further recommendations pending this. Dictated by... Mamadou Garrett M.D. MELVIN/inge TD: 10/09/2016 12:56 JOB #: [id number] CONSULTATION REPORT Page 1 of 1 X Mamadou Garrett MD X CONSULTATION REPORT
--- NOTE | ~2016-10-09 | CR72 ---
[facility] A Service of [facility] RADIOLOGY TEXT RESULTS PATIENT: JOSE CARLOS MORAN LOCATION: [facility] : 37 UNIT #: [id number] AGE: [address]: Anthony Kerns MD SEX: M ORDER DR: [id number] [facility] [address]. [place], [place] [address] [id number] I MR#: [id number] Acc #: [id number] NAME: JOSE CARLOS MORAN. : 1935 SEX: M STUDY DATE/TIME: 10/11/2016 4:52 UNIT: [address] ROOM: [facility] STUDY DESCRIPTION: CR Chest Single View Portable Attending Physician: Anthony Kerns M.D. Ordering Physician: Kya Torres D.O. Primary Care Physician: Claudio Gaming M.D. MEDICAL IMAGING REPORT This report is preliminary unless electronic signature is present EXAM Portable AP view of the chest COMPARISON October 10, 2016 and October 09, 2016 INDICATION 80-year-old male with dyspnea, pneumonia and confusion for 2 days. Influenza A infection. FINDINGS AND IMPRESSION There is stable cardiomegaly. There is diffuse calcification of the thoracic aorta. No evidence of pneumothorax. Allowing for slight differences in positioning, perihilar opacities are likely stable and may not be appreciably changed from 2014, perhaps representing normal central bronchovascular structures which are mildly congested. There does appear to be increasing cephalization of pulmonary vasculature as compared to yesterday and findings could reflect mild worsening pulmonary edema. No pleural effusion. Dictated by... Regis Hernandez M.D. THIS IS AN ELECTRONICALLY VERIFIED REPORT Regis Hernandez M.D. at 10/13/2016 4:24 PM Tamela TD: 10/11/2016 22:01 JOB #: [id number] MEDICAL IMAGING REPORT Page 1 of 1 COPY
--- NOTE | ~2016-10-09 | US37 ---
[facility] A Service of [facility] & [facility] RADIOLOGY TEXT RESULTS PATIENT: JOSE CARLOS MORAN LOCATION: [facility] : 36 UNIT #: [id number] AGE: [address]: Anthony Kerns MD SEX: M ORDER DR: [id number] [facility] [address] [facility] [address] [address]. [place], [place] [address] [id number] MR#: [id number] #: [id number] NAME: JOSE CARLOS MORAN. : 1935 SEX: M STUDY DATE/TIME: 10/09/2016 21:51 UNIT: [address] ROOM: [facility] STUDY DESCRIPTION: US Carotid W/Doppler Bilateral Attending Physician: Anthony Kerns M.D. Ordering Physician: Richy Pan M.D. Primary Care Physician: Claudio Gaming M.D. MEDICAL IMAGING REPORT This report is preliminary unless electronic signature is present EXAM Bilateral carotid duplex HISTORY Carotid stenosis. FINDINGS Duplex imaging of the carotid arteries was performed. Right common carotid artery is patent with scattered plaque. Plaque extends into the right internal and external carotid arteries which is heterogeneous and hyperechoic with acoustic shadowing. Velocity in the right common carotid is 117 internal is 91 proximal is 69 mid portion and 157 distally. Right ICA/CCA ratio is 1.3. External carotid artery velocity is 82 cm/sec. On the left side plaque is seen in the common internal and external carotid arteries. Velocity in the left common carotid artery is 149 internal is 93 proximally 144 mid portion and 131 distally external is 72 cm/sec. Left ICA/CCA ratio is 0.9. Antegrade flow is seen in the right and left vertebral arteries. IMPRESSION 1. Plaque is seen with no significant stenosis in the proximal internal carotid artery on the right side. Increased velocities are seen in the distal right internal carotid artery which could indicate a 50-69% stenosis. 2. Plaque with increased velocities in the left mid internal carotid artery indicating a 50-69% stenosis is seen. 3. Antegrade flow is seen in the right and left vertebral arteries. Dictated by... Carlos Obrien M.D. [facility] A Service of [facility] & [facility] RADIOLOGY TEXT RESULTS PATIENT: JOSE CARLOS MORAN LOCATION: [facility] 305-01 : 36 UNIT #: [id number] AGE: [address]: Anthony Kerns MD SEX: M ORDER DR: THIS IS AN ELECTRONICALLY VERIFIED REPORT Carlos Obrien M.D. at 10/15/2016 2:06 PM /sunshine TD: 10/10/2016 22:47 JOB #: [id number] MEDICAL IMAGING REPORT Page 1 of 1 COPY
--- NOTE | ~2016-10-09 | EKG ---
PATIENT: JOSE CARLOS MORAN UNIT #: [id number] Ventricular Rate: 86 BPM Atrial Rate: 82 BPM QRS Duration: 174 ms Q-T Interval: 458 ms QTC Calculation(Bezet): 548 ms Calculated R Timnath: 157 degrees Calculated T Timnath: 89 degrees Diagnosis Line: Atrial fibrillation with premature ventricular or Diagnosis Line: aberrantly conducted complexes Diagnosis Line: Indeterminate axis Diagnosis Line: Right bundle branch block with repolarization Diagnosis Line: abnormality Diagnosis Line: Abnormal ECG Diagnosis Line: No previous ECGs available Diagnosis Line: Confirmed by CHUY SALAZAR MD ([id number]) on 10/12/2016 Diagnosis Line: 10:43:01 PM INTERPRETING MD: MARIE KIRKLAND
--- NOTE | ~2016-10-09 | CO ---
Unit #: [id number] #: [id number] Patient: SID SAINZ [id number] [facility] [address] [facility]. [place], [place] [address] [id number] I MR#: [id number] NAME: SID SAINZ. ROOM: 305 Age: 80 Sex: M Admission Date: 10/09/2016 : 1935 Attending Physician: Anthony Kerns M.D. Primary Care Physician: Claudio Gaming M.D. Consultation Date: 10/12/2016 CONSULTATION REPORT REASON FOR CONSULTATION Followup. DISCUSSION Mr. Sid Sainz is a 80-year-old male seen on October 12, 2016, in room 305, bed 1, at [facility]. Patient was pleasant and cooperative during the interview and able to answer questions appropriately. Patient reports that he is getting better. VITAL SIGNS: 97.4, 66, 18, 122/53, and oxygen saturation 100%. Patient is tolerating medications fairly well. No side effects to medications but still residual confusion. REVIEW OF SYSTEMS Complete review of systems unremarkable. MENTAL STATUS EXAMINATION General appearance: Patient is dressed casually in hospital attire, lying comfortably in bed. Attention span and concentration fair. Speech is regular rate. Oriented in place and person. Mood and affect was labile. Thought process circumstantial and thought content guarded and paranoid but denied any thoughts of harming self or others. Recent and remote memory fair to poor. Language intact. Fund of knowledge fair. Insight and judgment fair to slightly impaired. DIAGNOSIS PSYCHIATRIC: 1. 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 2. Delirium, resolved, F05. 3. 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 ASSESSMENT AND PLAN 1. Supportive psychotherapy and psychoeducation provided to patient and family. 2. Advised to continue with current medication. If needed, consider further adjustment of medication. Patient is on Haldol 0.5 mg at bedtime. 3. We will closely monitor patient's mood and behavior. 1. Dictated by..Margaret Carlson M.D. Unit #: [id number] #: [id number] Patient: SID SAINZ MIKI/jordy TD: 10/13/2016 21:34 JOB #: [id number] CONSULTATION REPORT Page 1 of 1 X Cain Carlson MD CONSULTATION REPORT
--- NOTE | ~2016-10-09 | XA170 ---
[facility] A Service of [facility] RADIOLOGY TEXT RESULTS PATIENT: JOSE CARLOS MORAN LOCATION: [facility] : 36 UNIT #: [id number] AGE: [address]: Anthony Kerns MD SEX: M ORDER DR: [id number] [id number] [facility]. [place], [place] [address] [id number] I MR#: [id number] Acc #: [id number] NAME: JOSE CARLOS MORAN. : 1935 SEX: M STUDY DATE/TIME: 10/12/2016 10:36 UNIT: [facility] PCU ROOM: [facility] STUDY DESCRIPTION: XA Paracentesis W Image Attending Physician: Anthony Kerns M.D. Ordering Physician: Garret Mederos Jr., M.D. Primary Care Physician: Claudio Gaming M.D. MEDICAL IMAGING REPORT This report is preliminary unless electronic signature is present EXAM Ultrasound-guided paracentesis. HISTORY Ascites PROCEDURE The risks, benefits and alternatives to the procedure were explained to the patient, and signed informed consent was obtained. He was placed supine on the stretcher. Preliminary ultrasound of abdomen was performed, which demonstrated a large volume ascites. This image was permanently saved. Overlying skin was marked. Patient was prepped and draped in the usual sterile fashion. Time-out was performed, as per protocol. Skin and subcutaneous tissues were anesthetized with buffered lidocaine. Yueh catheter was advanced into the fluid with aspiration of serous material. Catheter was hooked to suction tubing, and there was evacuation of a total of 9 liters of serous material. The catheter was then removed, and manual pressure was applied until hemostasis was obtained. The patient tolerated the procedure well, and there were no immediate complications. IMPRESSION Technically successful ultrasound-guided paracentesis with evacuation of 9 liters of serous material. Ultrasound was used during the procedure, and permanent images were saved. [facility] A Service of [facility] RADIOLOGY TEXT RESULTS PATIENT: JOSE CARLOS MORAN LOCATION: [facility] : 36 UNIT #: [id number] AGE: [address]: Anthony Kerns MD SEX: M ORDER DR: Dictated by... Dorothy Hernandez M.D. THIS IS AN ELECTRONICALLY VERIFIED REPORT Dorothy Hernandez M.D. at 10/13/2016 3:43 PM AFF/ciera TD: 10/13/2016 11:29 JOB #: [id number] MEDICAL IMAGING REPORT Page 1 of 1 COPY
--- NOTE | ~2016-10-09 | CO ---
Unit #: [id number] #: [id number] Patient: JOSE CARLOS MORAN [id number] [facility] [address] [facility]. [place], [place] [address] [id number] I MR#: [id number] NAME: JOSE CARLOS MORAN ROOM: 31022 Age: 80 Sex: M Admission Date: 10/09/2016 : 1935 Attending Physician: Anthony Kerns M.D. Primary Care Physician: Claudio Gaming M.D. Requesting Physician: Anthony Kerns M.D. Consultation Date: 10/09/2016 CONSULTATION REPORT REASON FOR CONSULTATION Decreased level of consciousness. PATIENT IDENTIFICATION This is a 79-year-old right-handed white male who was evaluated in the emergency room, room 5, at [facility]. SOURCE OF INFORMATION Essentially the medical record. No family available. PROBLEM LIST 1. The patient presented with decreased level of consciousness. 2. Possible myocardial infarction type picture. 3. Possible sepsis. 4. Influenza A positive. 5. Endstage renal disease. He sees Dr. Hawk. 6. Hypertension. 7. History of atrial fibrillation. 8. Diabetes. 9. Bladder cancer. 10. Inguinal hernia repair. 11. Left arm shunt times two. 12. Bilateral cataract surgery. 13. He also has chronic obstructive pulmonary disease. 14. He had prior myocardial infarction. 15. Hypercholesterolemia. 16. Stage 4 kidney disease. HISTORY OF PRESENT ILLNESS This is a gentleman who was brought in via EMS around 3:54. Apparently he was fine until about 11 or 11:30. He was watching the ballgames and then something happened. There is no family member available to tell us what happened. He was very combative. He was very confused, very agitated, but he was not really talking or communicating easily. The concern initially was could it be a stroke-like situation. Considering his comorbidities and since he was outside the window for intervention, it was decided to work up on other medical management type situation. His blood pressure was 179/76, pulse 97.2, respiratory rate and other parameters were okay. PCO2 was 47.6. His BUN was 29, creatinine 1.7, random glucose 183. His alkaline phosphatase was 209, troponin apparently was 0.11 point of care at 6:30 this morning. His influenza A is positive. His white count is 9.1. Hemoglobin 9.4 and hematocrit 31.5. Head CT was unremarkable. It was considered that most likely this is multifactorial toxic metabolic encephalopathy. Unit #: [id number] #: [id number] Patient: JOSE CARLOS MORAN No recent medication changes. No other infections known to be, but unfortunately no family member is available. No falls or injuries or seizures known to me. No migraine. SOCIAL HISTORY Former smoker. No alcohol or drug use. FAMILY HISTORY Diabetes, hypertension and cancer. ALLERGIES No known drug allergies. HOME MEDICATIONS Apparently are 1. Isordil. 2. Tembid. 3. Hydralazine. 4. Ton aspirin. 5. Calcium acetate. 6. Avodart. 7. Lipitor. 8. Finasteride. 9. Lisinopril. 10. Nitrostat. 11. Oxygen. REVIEW OF SYSTEMS Very difficult to obtain. He has decreased level of consciousness. Also, no family members available to corroborate any history that we have. PHYSICAL EXAMINATION VITALS: Temperature 98.4, pulse 72, respiratory rate 26, blood pressure 107/57. No pain was reported. NEUROLOGIC EXAMINATION The patient is awake. He is alert. He is oriented to himself and to hospital. He does not know the exact date or the month. He can name and he can follow commands. No right/left confusion. No finger agnosia. He gave me thumbs up. CRANIAL NERVES: Responds to threats in all taylor. Eye movements are conjugate. I did not see any ptosis. I did not see any nystagmus. Extraocular movements are intact. Sensation on the face and scalp are normal. Muscles of facial expression are normal. Hearing seems to be intact bilaterally. Tongue was midline. Uvular midline. Palate elevation is normal. Head turning and shoulder shrugs were unremarkable. MOTOR: Unfortunately he is restrained right now, but he is moving all extremities. Strength of at least 4+/5. SENSORY: Intact for soft touch and pain sensation. No extinction was seen. Romberg was not evaluated. GAIT/REFLEXES: Gait deferred. I could not get any reflexes. Toes are equivocal. Gait and coordination otherwise could not be evaluated. DIAGNOSTIC STUDIES Unit #: [id number] #: [id number] Patient: JOSE CARLOS MORAN IMAGING: Reviewed and as discussed. I reviewed his CT. There is significant motion artifact, but I really did not see anything major. LABORATORY: Reviewed and as discussed. ASSESSMENT/PLAN Likely multifactorial toxic and metabolic encephalopathy. This gentleman has a lot of reasons. Obviously nothing suggesting stroke-like picture. Obviously he is not a TPR intervention candidate. I am going to request MRI of the brain and MRA of the head and neck. Cardiology, pulmonary and renal are going to see the patient. I discussed briefly with Dr. Kerns. Again, not a classic TIA picture. Also, less likely he had seizures. Will give him supportive care and see how things go. Will keep you informed. I will see him while he is in the hospital. So far nothing suggesting that this is just a MANAGER GAME infection type picture either, so I will follow up and if there is any change needed will discuss that. Dictated by... Zulema Pacheco TD: 10/09/2016 11:44 JOB #: [id number] CONSULTATION REPORT Page 1 of 1 X Orlando Orr MD CONSULTATION REPORT
--- NOTE | ~2016-10-09 | EKG ---
PATIENT: JOSE CARLOS MORAN UNIT #: [id number] Ventricular Rate: 47 BPM Atrial Rate: 71 BPM QRS Duration: 160 ms Q-T Interval: 570 ms QTC Calculation(Bezet): 504 ms Calculated R Mansfield: 124 degrees Calculated T Mansfield: 174 degrees Diagnosis Line: Atrial fibrillation with slow ventricular response Diagnosis Line: with premature ventricular or aberrantly conducted Diagnosis Line: complexes Diagnosis Line: Right bundle branch block Diagnosis Line: T wave abnormality, consider lateral ischemia or Diagnosis Line: digitalis effect Diagnosis Line: Abnormal ECG Diagnosis Line: When compared with ECG of 09-OCT-2016 04:37, Diagnosis Line: (unconfirmed) Diagnosis Line: Vent. rate has decreased BY 39 BPM Diagnosis Line: T wave inversion now evident in Lateral leads Diagnosis Line: Confirmed by AMELIA SINGH MD ([id number]) on 10/11/2016 Diagnosis Line: 7:25:22 AM INTERPRETING MD: FRANCISCO KIRKLAND
--- NOTE | ~2016-10-09 | CO ---
Unit #: [id number] #: [id number] Patient: JOSE CARLOS SAINZ [id number] [address] [place], [place] [address] [id number] I MR#: [id number] NAME: JOSE CARLOS SAINZ. ROOM: 305 Age: 80 Sex: M Admission Date: 10/09/2016 : 1935 Attending Physician: Anthony Kerns M.D. Primary Care Physician: Claudio Gaming M.D. Consultation Date: 10/09/2016 CONSULTATION REPORT REASON FOR CONSULT Dialysis needs. HISTORY OF PRESENT ILLNESS Mr. Sainz is a very pleasant 80-year-old white male very well known to me as I see him at the dialysis unit on a regular basis. Patient's major ongoing issue is of chronic anemia for which he was just scoped by Dr. Christensen. He also has cirrhosis with ascites and has to get a paracentesis done about every four to six weeks. Patient was apparently brought in by family because of altered mental status. Patient has been down in the ER most of the day, and he is now here in the unit and appears appropriate at this time. He recognized me when I walked into the room and is oriented to hospital and year. He did test positive for flu. He also had an abnormal urine and has been started on antibiotics both for urinary tract infection and sepsis protocol coverage. He denies any shortness of breath at this time anymore so than his normal shortness of air as he is on chronic O2. No chest pain at the moment, no GI distress, no significant lower extremity swelling, and no reports of fevers or chills according to the patient. No ill contacts that he is aware of. PAST MEDICAL HISTORY 1. End-stage renal disease. 2. Bladder cancer. 3. Chronic obstructive pulmonary disease with previous tobacco abuse. 4. Diabetes. 5. Atrial fibrillation. 6. Nonsustained ventricular tachycardia. 7. Tachycardia-bradycardia syndrome. 8. 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 9. Severe pulmonary hypertension. 10. 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 11. Chronic anemia. PAST SURGICAL HISTORY 1. Bladder tumor removed on multiple sessions. 2. Inguinal hernia repair. 3. Left arm shunt. 4. Cataract surgery. HOME MEDICATIONS 1. Isosorbide dinitrate 40 mg twice daily. 2. Aspirin daily. 3. Calcium acetate 3 times daily with meals. Unit #: [id number] #: [id number] Patient: JOSE CARLOS SAINZ 4. Atorvastatin 40 mg at bedtime. 5. Finasteride 5 mg at bedtime. 6. Lisinopril 5 mg daily. 7. Nitrostat p.r.n. 8. Avodart 0.5 mg at bedtime. ALLERGIES No known drug allergies. FAMILY HISTORY Noncontributory to the current issue. SOCIAL HISTORY He lives with family. He is able to ambulate but does have some generalized weakness. He is a former smoker, no longer drinks, and no history of drug use. REVIEW OF SYSTEMS A complete 12-point review of systems was completed with the above findings. In addition, he denies any headaches or dizziness at this time, no nosebleed, sore throat, or earache, no hemoptysis, no hematemesis, no bright red blood per rectum or melena, no dysuria or hematuria per him, no rash or itching, no flank pain, no fevers, no chills, no night sweats or hot flashes, and no intolerance to heat or cold. He does have some bruising. Unless otherwise indicated, the review of systems was negative. PHYSICAL EXAMINATION VITAL SIGNS: Patient is afebrile, pulse 71, respiratory rate 20, and blood pressure 134/51. It was actually 179/76 on admission. GENERAL: This is a 80-year-old male who is alert, again, recognizes me, and is oriented to place and time. HEENT: Head is atraumatic and normocephalic. Eyes show pale conjunctivae with no scleral icterus and no nasal drainage or nosebleed. Oropharynx is slightly dry. No thrush. NECK: No rigidity. HEART: Irregularly irregular with murmur present. No rub appreciated. LUNGS: Diminished air entry bilaterally without wheezing. Breathing is nonlabored at rest. ABDOMEN: Distended, somewhat firm, and nontender. There are bowel sounds present. EXTREMITIES: No lower extremity cyanosis or pitting edema. SKIN: Dry with bruising but no rashes. VASCULAR: Patient has a left arm fistula in place with good bruit and thrill. PSYCHIATRIC: Mood and affect appear normal. NEUROLOGIC: Patient is moving all four extremities. Again, he is oriented at this time. DIAGNOSTIC STUDIES LABORATORY: BNP was 4800. Procalcitonin did come back high at 1.94. Drug screen is negative. Urinalysis did have red and white blood cells with bacteria. Troponin was 0.78. He was influenza A positive. Chemistry this morning noteworthy for a low potassium of 3.2, bicarb 22, BUN and creatinine 29 and 4.7, respectively, calcium 8.1, and albumin 2.6. Admission ammonia was 5.2. INR 1.1. Admission CBC with white count 9, hemoglobin 9.4, and platelet count 140,000. IMAGING: Chest x-ray showed some vascular congestion. CT of the head Unit #: [id number] #: [id number] Patient: JOSE CARLOS SAINZ showed no acute changes. ASSESSMENT AND PLAN 1. End-stage renal disease. Patient will be due for dialysis tomorrow, and we will arrange it here in the ICU. 2. Hypokalemia. This has been replaced with 20 mEq of potassium already. With him being a dialysis patient, we will not order any more potassium, but I will run him on a 4 potassium bath tomorrow. 3. Urinary tract infection. Patient has been started on antibiotics by the intensive care unit team. 4. Chronic anemia. Patient gets high-dose Mircera at the dialysis unit. 5. History of bladder cancer. 6. History of chronic obstructive pulmonary disease. 7. History of diabetes. 8. Atrial fibrillation. 9. History of heart failure with an ejection fraction of 45% with decreased right ventricular function. 10. Severe pulmonary hypertension. 11. Influenza A, on Tamiflu. 12. Cirrhosis of the liver requiring regular paracentesis. I would like to thank Dr. Kerns for this consult and the opportunity to participate in evaluation and care of Mr. Sainz. Dictated by... Garret Mederos Jr., M.D. DONI/jordy TD: 10/11/2016 21:01 JOB #: [id number] CONSULTATION REPORT Page 1 of 1 X Garret Mederos MD X CONSULTATION REPORT
--- NOTE | ~2016-10-09 | CT72 ---
[facility] A Service of [facility] RADIOLOGY TEXT RESULTS PATIENT: JOSE CARLOS MORAN LOCATION: [facility] 305-01 : 36 UNIT #: [id number] AGE: [address]: Anthony Kerns MD SEX: M ORDER DR: [id number] [id number] [facility]. [place], [place] [address] [id number] I MR#: [id number] Acc #: [id number] NAME: JOSE CARLOS MORAN. : 1935 SEX: M STUDY DATE/TIME: 10/09/2016 4:06 UNIT: [facility] ROOM: 72581 STUDY DESCRIPTION: CT Head Wo Contrast Stroke Attending Physician: Anthony Kerns M.D. Ordering Physician: Clark Hernandez D.O. Primary Care Physician: Claudio Gaming M.D. MEDICAL IMAGING REPORT This report is preliminary unless electronic signature is present EXAM CT head, noncontrast, 10/09/2016 HISTORY 80-year-old male in the ED with confusion/mental status changes. Decreased responsiveness. Nausea and vomiting. TECHNIQUE CT examination of the head was performed without IV contrast. This CT exam was performed with one or more of the following radiation dose reduction techniques: automatic exposure control, adjustment of mA and/or kV according to patient size, and iterative reconstruction. FINDINGS The examination is markedly limited due to patient motion artifact. He moved throughout the examination. The entire study was repeated without improvement, and both sets of images are reviewed. There is no gross evidence of acute intracranial hemorrhage, mass, mass effect, acute cerebral edema or hydrocephalus. Mild generalized cerebral cortical atrophy. Diffuse low attenuation white matter changes suggesting mild chronic microvascular disease. No comparison studies here. IMPRESSION 1. Exam markedly degraded by patient motion artifact. 2. No gross evidence of acute intracranial abnormality. 3. Mild diffuse chronic changes as noted above. Dictated by... José Esteban M.D. THIS IS AN ELECTRONICALLY VERIFIED REPORT [facility] A Service of [facility] RADIOLOGY TEXT RESULTS PATIENT: JOSE CARLOS MORAN LOCATION: [facility] 305-01 : 36 UNIT #: [id number] AGE: [address]: Anthony Kerns MD SEX: M ORDER DR: José Esteban M.D. at 10/13/2016 5:01 PM Natalie TD: 10/09/2016 08:36 JOB #: [id number] MEDICAL IMAGING REPORT Page 1 of 1 COPY
[~2016-10-09 04:12] MED LIST changes: -AMIODARONE HCL200 MG PO; -AMIODARONE PO; -ATORVASTATIN CA40 MG PO; -CALCIUM ACETAT667 M2 PO; -CHEWABLE ASPIRI81 MG PO; -DUTASTERIDE0.5 MG PO; -ETHYL CHLORI103.5 ML TOP; -FINASTERIDE5 MG PO; -ISORDIL PO; -ISORDIL10 MG PO; -PROTONIX PO; -ST. JOSEPH ASP325 MG PO
[2016-10-09 04:26] LABS: POC - CKMB 11.5 ng/mL (0.0-7.9); POC - TROPONIN 0.1 ng/mL (<=0.05)
[2016-10-09 05:08] LABS: BASOPHIL# 0.1 X10e3 (0-0.3); BASOPHIL% 0.9 % (0-2.5); EOSINOPHIL# 0.6 X10e3 (0-0.7); EOSINOPHIL% 6.8 % (0.0-7.0); HEMATOCRIT 31.5 % (38.0-50.0); HEMOGLOBIN 9.4 gm/dL (13.0-16.0); LYMPHOCYTE# 1.2 X10e3 (1.0-3.5); LYMPHOCYTE% 13.7 % (17.0-45.0); MEAN CELL VOLUME 92.6 FL (83-96); MEAN CORPUSCULAR HEMOGLOBIN 27.7 PG (28-34); MEAN CORPUSCULAR HGB CONC 29.8 g/dL (30-36); MEAN PLATELET VOLUME 10.6 FL (6.5-11.5); MONOCYTE# 0.4 X10e3 (0-1.0); MONOCYTE% 4.4 % (3.0-12.0); NEUTROPHIL# 6.8 X10e3 (1.5-7.1); NEUTROPHIL% 74.2 % (40-75); PLATELET COUNT 140 X10e3 (140-420); RED CELL DISTRIBUTION WIDTH 20.9 % (11.0-15.5); WHITE BLOOD COUNT 9.1 X10e3 (4.0-10.5)
[2016-10-09 05:12] LABS: DIFF IND NO
[2016-10-09 05:19] LABS: INR 1.1; PROTHROMBIN TIME (PATIENT) 11.6 SECONDS (9.6-11.5)
[2016-10-09 05:27] LABS: ALBUMIN SERUM 2.6 g/dL (3.5-5.0); ALKALINE PHOSPHATASE 209 U/L (32-92); ALT (SGPT) 23 U/L (10-40); AST (SGOT) 30 U/L (10-42); BILIRUBIN, DIRECT 0.2 mg/dL (0.0-0.2); BILIRUBIN,TOTAL 0.2 mg/dL (0.2-2.0); BLOOD UREA NITROGEN 29 mg/dL (9-23); BUN/CREATININE RATIO 6.17; CALCIUM SERUM 8.1 mg/dL (8.4-10.2); CARBON DIOXIDE 22 mmol/L (22-31); CHLORIDE 99 mmol/L (100-111); CREATININE SERUM 4.7 mg/dL (0.6-1.4); GLUCOSE FASTING 183 mg/dL (70-110); POTASSIUM 3.2 mmol/L (3.5-5.1); PROTEIN TOTAL SERUM 6.6 g/dL (6.0-8.3); SALICYLATE <4.0 mg/dL; SODIUM 138 mmol/L (135-145)
[2016-10-09 05:37] LABS: ACETAMINOPHEN <10 ug/mL; ALCOHOL BLOOD <5 mg/dL (0)
[2016-10-09 05:53] LABS: ARTERIAL BLOOD GAS CARBOXY HB 1.4 %sat (0.0-9.0); ARTERIAL BLOOD GAS HCO3 25.1 mmol/L; ARTERIAL BLOOD GAS MET HB 0.8 %sat (0.0-2.0); ARTERIAL BLOOD GAS PCO2 47.6 mmHg (35.0-45.0); ARTERIAL BLOOD GAS PO2 81.7 mmHg (80.0-100)
[2016-10-09 05:58] LABS: ARTERIAL BLOOD GAS ALLEN TEST NORMAL; ARTERIAL BLOOD GAS ART SITE RIGHT RADIAL; ARTERIAL BLOOD GAS DELIVERY VENTURI MASK; ARTERIAL DRAW? YES
[2016-10-09 06:35] LABS: POC - CKMB 9.1 ng/mL (0.0-7.9); POC - TROPONIN 0.11 ng/mL (<=0.05)
[2016-10-09 07:14] LABS: INFLUENZA A POS (NEG); INFLUENZA B NEG (NEG)
[2016-10-09 12:44] LABS: URINE SOURCE CLEAN CATCH
[2016-10-09 12:52] LABS: URINE APPEARANCE TURBID; URINE BLOOD 3+ (NEG); URINE COLOR ORANGE; URINE GLUCOSE NEG (NEG); URINE KETONE NEG (NEG); URINE LEUKOCYTE ESTERASE 3+ (NEG); URINE NITRATE NEG (NEG); URINE PH 5.5 (5-8); URINE PROTEIN 3+ (NEG); URINE UROBILINOGEN 0.2 MG/DL (NEG)
[2016-10-09 12:54] LABS: CULTURE INDICATED? YES; URBCS1 AUWI INNUM /[HPF] (0-2); URINE BACTERIA AUWI 4+ (NEGATIVE); URINE SQUAMOUS EPITHELIAL CELL MOD /[HPF]; UWBCS1 AUWI INNUM (0-5)
[2016-10-09 13:09] LABS: URINE BILIRUBIN NEG (NEG)
[2016-10-09 13:19] LABS: AMPHETAMINE NEG (NEG); BARBITURATES NEG (NEG); BENZODIAZEPINES NEG (NEG); COCAINE NEG (NEG); MARIJUANA NEG (NEG); OPIATES NEG (NEG); TRICYCLIC ANTIDEPRESSANTS NEG (NEG); U METHADONE NEG (NEG)
[2016-10-09 13:55] LABS: CHOLESTEROL 93 mg/dL (0-200); HDL CHOLESTEROL 48 mg/dL (29-75); LDL CHOLESTEROL 24 mg/dL (-130); LDL/HDL RATIO 1 RATIO (0-4); TRIGLYCERIDES 104 mg/dL (10-160)
[2016-10-09 14:10] LABS: FOLATE (FOLIC ACID) 12.7 ng/mL (>5.8)
[2016-10-09] MEDS ORDERED: ISORDIL PO (14:17)
[2016-10-09] MEDS ORDERED: ST. JOSEPH ASP325 MG PO (14:17)
[2016-10-09] MEDS ORDERED: CALCIUM ACETAT667 M1 PO (14:18)
[2016-10-09] MEDS ORDERED: ATORVASTATIN CA40 MG PO (14:18)
[2016-10-09] MEDS ORDERED: LISINOPRIL5 MG PO (14:19)
[2016-10-09] MEDS ORDERED: FINASTERIDE5 MG PO (14:19)
[2016-10-09] MEDS ORDERED: SYMBICORT INH (14:20)
[2016-10-09] MEDS ORDERED: NITROSTAT0.4 MG SL (14:21)
[2016-10-09] MEDS ORDERED: COMBIVENT RESPIM4 GM INH (14:21)
[2016-10-09] MEDS ORDERED: AVODART0.5 MG PO (14:24)
[2016-10-10 03:57] LABS: BASOPHIL% 0.6 % (0-2.5); EOSINOPHIL# 0.3 X10e3 (0-0.7); HEMATOCRIT 28.1 % (38.0-50.0); HEMOGLOBIN 8.4 gm/dL (13.0-16.0); LYMPHOCYTE# 0.4 X10e3 (1.0-3.5); LYMPHOCYTE% 5.9 % (17.0-45.0); MEAN CELL VOLUME 93.1 FL (83-96); MEAN CORPUSCULAR HEMOGLOBIN 27.9 PG (28-34); MEAN CORPUSCULAR HGB CONC 29.9 g/dL (30-36); MONOCYTE# 0.5 X10e3 (0-1.0); MONOCYTE% 8.4 % (3.0-12.0); NEUTROPHIL# 5.3 X10e3 (1.5-7.1); NEUTROPHIL% 81.1 % (40-75); RED BLOOD COUNT 3.02 X10e (3.90-5.60); RED CELL DISTRIBUTION WIDTH 20.9 % (11.0-15.5); WHITE BLOOD COUNT 6.5 X10e3 (4.0-10.5)
[2016-10-10 04:10] LABS: PLATELET COUNT 86 X10e3 (140-420)
[2016-10-10 04:11] LABS: DIFF IND YES
[2016-10-10 04:17] LABS: ANISOCYTOSIS MOD; OVALOCYTES PRESENT; PLATELET ESTIMATE DECREASED (NORMAL)
[2016-10-10 04:26] LABS: BUN/CREATININE RATIO 6.1; CALCIUM SERUM 7.8 mg/dL (8.4-10.2); CREATININE SERUM 5.9 mg/dL (0.6-1.4); GLOM FILT RATE Estimated 8.3 mL/min (>60); MAGNESIUM 1.9 mg/dL (1.6-3.0); POTASSIUM 3.5 mmol/L (3.5-5.1)
[2016-10-11 08:26] LABS: BASOPHIL% 0.9 % (0-2.5); EOSINOPHIL# 0.5 X10e3 (0-0.7); HEMATOCRIT 29.6 % (38.0-50.0); HEMOGLOBIN 8.9 gm/dL (13.0-16.0); LYMPHOCYTE# 0.5 X10e3 (1.0-3.5); MEAN CELL VOLUME 92.3 FL (83-96); MEAN CORPUSCULAR HEMOGLOBIN 27.9 PG (28-34); MEAN CORPUSCULAR HGB CONC 30.2 g/dL (30-36); MEAN PLATELET VOLUME 10.1 FL (6.5-11.5); MONOCYTE# 0.5 X10e3 (0-1.0); MONOCYTE% 9.4 % (3.0-12.0); NEUTROPHIL# 4.1 X10e3 (1.5-7.1); NEUTROPHIL% 71.7 % (40-75); PLATELET COUNT 92 X10e3 (140-420); RED BLOOD COUNT 3.21 X10e (3.90-5.60); RED CELL DISTRIBUTION WIDTH 20.9 % (11.0-15.5); WHITE BLOOD COUNT 5.8 X10e3 (4.0-10.5)
[2016-10-11 08:27] LABS: DIFF IND NO
[2016-10-11 08:48] LABS: BUN/CREATININE RATIO 5.57; CALCIUM SERUM 7.7 mg/dL (8.4-10.2); CREATININE SERUM 5.2 mg/dL (0.6-1.4); GLOM FILT RATE Estimated 9.7 mL/min (>60); POTASSIUM 4.7 mmol/L (3.5-5.1)
[2016-10-12 08:05] LABS: BASOPHIL% 0.8 % (0-2.5); EOSINOPHIL# 0.6 X10e3 (0-0.7); HEMATOCRIT 28.2 % (38.0-50.0); HEMOGLOBIN 8.5 gm/dL (13.0-16.0); LYMPHOCYTE# 0.7 X10e3 (1.0-3.5); LYMPHOCYTE% 13.9 % (17.0-45.0); MEAN CELL VOLUME 91.5 FL (83-96); MEAN CORPUSCULAR HEMOGLOBIN 27.6 PG (28-34); MEAN CORPUSCULAR HGB CONC 30.1 g/dL (30-36); MEAN PLATELET VOLUME 10.7 FL (6.5-11.5); MONOCYTE# 0.5 X10e3 (0-1.0); MONOCYTE% 10.1 % (3.0-12.0); NEUTROPHIL% 63.2 % (40-75); PLATELET COUNT 101 X10e3 (140-420); RED BLOOD COUNT 3.08 X10e (3.90-5.60); RED CELL DISTRIBUTION WIDTH 20.2 % (11.0-15.5); WHITE BLOOD COUNT 4.7 X10e3 (4.0-10.5)
[2016-10-12 08:11] LABS: DIFF IND NO
[2016-10-12 08:22] LABS: INR 1.1; PARTIAL THROMBOPLASTIN TIME 27.1 SECONDS (23.5-31.3); PROTHROMBIN TIME (PATIENT) 11.4 SECONDS (9.6-11.5)
[2016-10-12 08:49] LABS: BUN/CREATININE RATIO 5.69; CALCIUM SERUM 8.1 mg/dL (8.4-10.2); CREATININE SERUM 6.5 mg/dL (0.6-1.4); GLOM FILT RATE Estimated 7.4 mL/min (>60)
[2016-10-13 07:25] LABS: HEMATOCRIT 30.7 % (38.0-50.0); HEMOGLOBIN 9.3 gm/dL (13.0-16.0); MEAN CELL VOLUME 91.7 FL (83-96); MEAN CORPUSCULAR HEMOGLOBIN 27.7 PG (28-34); MEAN CORPUSCULAR HGB CONC 30.2 g/dL (30-36); MEAN PLATELET VOLUME 10.6 FL (6.5-11.5); RED BLOOD COUNT 3.35 X10e (3.90-5.60); RED CELL DISTRIBUTION WIDTH 19.8 % (11.0-15.5); WHITE BLOOD COUNT 4.9 X10e3 (4.0-10.5)
[2016-10-13 08:02] LABS: BUN/CREATININE RATIO 5.64; CALCIUM SERUM 7.9 mg/dL (8.4-10.2); CREATININE SERUM 7.8 mg/dL (0.6-1.4); GLOM FILT RATE Estimated 5.9 mL/min (>60); POTASSIUM 4.7 mmol/L (3.5-5.1)
[2016-10-13] MEDS ORDERED: AMIODARONE PO (12:29)
== END 2016-10-13 15:15 | disposition home health service (06) | DRG 280 ==
LOC: CED 04:12 → CEDOF 06:42 → CICCU2 14:57 → C3A PCU 10-10 20:35
PROVIDERS: Emergency Medicine; Family Medicine; Internal Medicine Nephrology; Internal Medicine Pulmonary Disease; Psychiatry & Neurology Neurology
PROC: B24BYZZ Ultrasonography of Heart with Aorta using Other Contrast (ICD-10-PCS; 2016-10-09)
PROC: 5A1D60Z (ICD-10-PCS; principal; 2016-10-11)
PROC: 0W9G30Z Drainage of Peritoneal Cavity with Drainage Device, Percutaneous Approach (ICD-10-PCS; 2016-10-12)
DX: I13.2 Hypertensive heart and chronic kidney disease with heart failure and with stage 5 chronic kidney disease, or end stage renal disease (principal); J10.08 Influenza due to other identified influenza virus with other specified pneumonia; I21.4 Non-ST elevation (NSTEMI) myocardial infarction; J96.20 Acute and chronic respiratory failure, unspecified whether with hypoxia or hypercapnia; G92 Toxic encephalopathy; I47.2 Ventricular tachycardia; R18.8 Other ascites; N18.6 End stage renal disease; I50.33 Acute on chronic diastolic (congestive) heart failure; F02.81 Dementia in other diseases classified elsewhere, unspecified severity, with behavioral disturbance; F05 Delirium due to known physiological condition; N39.0 Urinary tract infection, site not specified; J98.11 Atelectasis; I25.10 Atherosclerotic heart disease of native coronary artery without angina pectoris; I25.2 Old myocardial infarction; D63.1 Anemia in chronic kidney disease; E78.5 Hyperlipidemia, unspecified; Z85.51 Personal history of malignant neoplasm of bladder; K74.60 Unspecified cirrhosis of liver; I65.23 Occlusion and stenosis of bilateral carotid arteries; I48.2 Chronic atrial fibrillation; Z99.2 Dependence on renal dialysis; Z79.82 Long term (current) use of aspirin; E87.6 Hypokalemia; G30.9 Alzheimer's disease, unspecified; F29 Unspecified psychosis not due to a substance or known physiological condition; I49.5 Sick sinus syndrome; Z99.81 Dependence on supplemental oxygen; Z91.81 History of falling; I27.2 Other secondary pulmonary hypertension; Z98.42 Cataract extraction status, left eye; Z98.41 Cataract extraction status, right eye; E78.00 Pure hypercholesterolemia, unspecified; C44.622 Squamous cell carcinoma of skin of right upper limb, including shoulder
CPT/HCPCS: 36415; 36600; 51702; 70450; 71010; 80048; 80061; 80076; 80307; 81003; 82140; 82308; 82553; 82607; 82746; 82803; 82947; 83605; 83735; 83880; 84484; 85025; 85027; 85610; 85730; 87040; 87070; 87086; 87205; 87804; 93005; 93306; 93880; 94760; 94761; 95816; 96374; 96375; 96376; 97162; 99291; G0480; G8978-GP; G8979-GP; G8980-GP; J0696; J1650; J2060; J2150; J2405; J2543; J3370; Q4081

== ENCOUNTER → 2016-11-04 | Outpatient (CLI) | payer MEDICARE ==
[~2016-11-04] MED LIST changes: +AMIODARONE HCL200 MG PO; +AMIODARONE PO; +ATORVASTATIN CA40 MG PO; +CALCIUM ACETAT667 M2 PO; +CHEWABLE ASPIRI81 MG PO; +DUTASTERIDE0.5 MG PO; +ETHYL CHLORI103.5 ML TOP; +FINASTERIDE5 MG PO; +ISORDIL PO; +ISORDIL10 MG PO; +PROTONIX PO; +ST. JOSEPH ASP325 MG PO
--- NOTE | ~2016-11-04 | XA170 ---
[facility] A Service of [facility] & [facility] RADIOLOGY TEXT RESULTS PATIENT: JOSE CARLOS SAINZ LOCATION: [facility] : 36 UNIT #: [id number] AGE: [address]: Medardo Christensen MD SEX: M ORDER DR: [id number] [facility] [address]. [place], [place] [address] [id number] O MR#: [id number] Acc #: [id number] NAME: JOSE CARLOS SAINZ : 1935 SEX: M STUDY DATE/TIME: 11/04/2016 7:31 UNIT: [facility] ROOM: STUDY DESCRIPTION: XA Paracentesis W Image Attending Physician: Medardo Christensen M.D. Ordering Physician: Medardo Christensen M.D. Primary Care Physician: Claudio Gaming M.D. MEDICAL IMAGING REPORT This report is preliminary unless electronic signature is present EXAM Ultrasound-guided paracentesis HISTORY Refractory ascites. PROCEDURE Procedure attendant risks and options were discussed with Mr. Sainz and he understands and wishes to proceed and informed written consent was obtained. Ultrasound examination was performed of the right flank. An appropriate site was chosen skin marked prepped and draped utilizing maximal sterile barrier technique including hibiclens sterile drapes and sterile gloves, a 5-Chinese catheter was placed under local anesthesia and a total of 9.5 L of fluid was removed. This was very well tolerated. Catheter was removed. Hemostasis achieved and the patient discharged. CONCLUSION Successful ultrasound guided paracentesis with removal 9.5 L of fluid. Dictated by... Juan C Noonan M.D. THIS IS AN ELECTRONICALLY VERIFIED REPORT Juan C Noonan M.D. at 11/05/2016 7:22 AM CARLOTA/sunshine TD: 11/04/2016 15:28 JOB #: [id number] MEDICAL IMAGING REPORT Page 1 of 1 COPY
[2016-11-04 07:29] LABS: HEMATOCRIT 29.2 % (38.0-50.0); MEAN CELL VOLUME 90.7 FL (83-96); MEAN CORPUSCULAR HEMOGLOBIN 27.8 PG (28-34); MEAN CORPUSCULAR HGB CONC 30.7 g/dL (30-36); MEAN PLATELET VOLUME 10.4 FL (6.5-11.5); RED BLOOD COUNT 3.22 X10e (3.90-5.60); RED CELL DISTRIBUTION WIDTH 17.7 % (11.0-15.5); WHITE BLOOD COUNT 4.9 X10e3 (4.0-10.5)
[2016-11-04 07:33] LABS: INR 1.1; PARTIAL THROMBOPLASTIN TIME 28.2 SECONDS (23.5-31.3); PROTHROMBIN TIME (PATIENT) 11.5 SECONDS (9.6-11.5)
== END | disposition home or self-care (01) ==
LOC: CIVR 06:48
PROVIDERS: Internal Medicine
PROC: 0W9G3ZX Drainage of Peritoneal Cavity, Percutaneous Approach, Diagnostic (ICD-10-PCS; principal; 2016-11-04)
DX: R18.8 Other ascites (principal)
CPT/HCPCS: 36415; 85027; 85610; 85730

== ENCOUNTER → 2016-12-02 | Outpatient (CLI) | payer MEDICARE ==
--- NOTE | ~2016-12-02 | XA170 ---
[facility] A Service of [facility] & [facility] RADIOLOGY TEXT RESULTS PATIENT: JOSE CARLOS SAINZ LOCATION: [facility] : 36 UNIT #: [id number] AGE: [address]: Medardo Christensen MD SEX: M ORDER DR: [id number] [facility] [address] [place], [place] [address] [id number] O MR#: [id number] Acc #: [id number] NAME: JOSE CARLOS SAINZ : 1935 SEX: M STUDY DATE/TIME: 12/02/2016 7:54 UNIT: [facility] ROOM: STUDY DESCRIPTION: XA Paracentesis W Image Attending Physician: Medardo Christensen M.D. Referring Physician: Medardo Christensen M.D. Ordering Physician: Medardo Christensen M.D. Primary Care Physician: Claudio Gaming M.D. MEDICAL IMAGING REPORT This report is preliminary unless electronic signature is present EXAM Ultrasound-guided paracentesis HISTORY Refractory ascites. FINDINGS The procedure, attendant risks and options were discussed with Mr. Sainz and he understands and wishes to proceed. The right lower quadrant was evaluated sonographically, an appropriate site was chosen, this was prepped with chlorhexidine solution and sterilely draped. Utilizing maximum sterile barrier technique including sterile gloves and under local anesthesia a 5 Portuguese catheter was inserted and a total of 11.6 liters of fluid was removed. This was well tolerated. A single ultrasound image was recorded for documentation purposes. CONCLUSION Successful therapeutic paracentesis with removal 11.6 L of fluid. Dictated by... Juan C Noonan M.D. THIS IS AN ELECTRONICALLY VERIFIED REPORT Juan C Noonan M.D. at 12/03/2016 7:25 AM Jesica TD: 12/02/2016 13:35 JOB #: [id number] MEDICAL IMAGING REPORT Page 1 of 1 COPY
== END | disposition home or self-care (01) ==
LOC: CIVR 07:43
PROC: 0W9G3ZX Drainage of Peritoneal Cavity, Percutaneous Approach, Diagnostic (ICD-10-PCS; principal; 2016-12-02)
DX: R18.8 Other ascites (principal)

== ENCOUNTER → 2016-12-25 | Outpatient (CLI) | payer MEDICARE ==
--- NOTE | ~2016-12-25 | XA170 ---
[facility] A Service of [facility] & [facility] RADIOLOGY TEXT RESULTS PATIENT: JOSE CARLOS SAINZ LOCATION: [facility] : 36 UNIT #: [id number] AGE: [address]: Medardo Christensen MD SEX: M ORDER DR: [id number] [facility] [address]. [place], [place] [address] [id number] O MR#: [id number] Acc #: [id number] NAME: JOSE CARLOS SAINZ : 1935 SEX: M STUDY DATE/TIME: 12/25/2016 7:34 UNIT: [facility] ROOM: STUDY DESCRIPTION: XA Paracentesis W Image Attending Physician: Medardo Christensen M.D. Referring Physician: Medardo Christensen M.D. Ordering Physician: Medardo Christensen M.D. Primary Care Physician: Claudio Gaming M.D. MEDICAL IMAGING REPORT This report is preliminary unless electronic signature is present EXAM Ultrasound-guided paracentesis HISTORY Refractory ascites. FINDINGS Procedure, attendant risks and options were discussed with Mr. Sainz. He has had this procedure previously. He understands and wishes to proceed. There were no additional questions. Ultrasound exam of the right flank was performed. An appropriate site was chosen. The skin was marked and prepped with Chlorhexidine. A sterile drape was utilized. Skin was anesthetized with 1% Xylocaine. Utilizing sterile gloves a 5-Spanish catheter was inserted and a total of 9.9 L was removed and discarded. Catheter was removed, hemostasis achieved. The procedure was very well tolerated. The patient was discharged to home. A permanent ultrasound image was recorded. CONCLUSION Successful ultrasound-guided therapeutic paracentesis with removal of 9.9 L of fluid. Dictated by... Juan C Noonan M.D. THIS IS AN ELECTRONICALLY VERIFIED REPORT Juan C Noonan M.D. at 12/31/2016 7:15 AM CARLOTA/mimi TD: 12/25/2016 12:47 JOB #: [id number] [facility] A Service of [facility] & [facility] RADIOLOGY TEXT RESULTS PATIENT: JOSE CARLOS SAINZ LOCATION: [facility] #: [id number] : 36 UNIT #: [id number] AGE: [address]: Medardo Christensen MD SEX: M ORDER DR: MEDICAL IMAGING REPORT Page 1 of 1 COPY
[2016-12-25 07:38] LABS: HEMATOCRIT 34.2 % (38.0-50.0); HEMOGLOBIN 10.5 gm/dL (13.0-16.0); MEAN CELL VOLUME 89.1 FL (83-96); MEAN CORPUSCULAR HEMOGLOBIN 27.3 PG (28-34); MEAN CORPUSCULAR HGB CONC 30.7 g/dL (30-36); MEAN PLATELET VOLUME 9.8 FL (6.5-11.5); RED BLOOD COUNT 3.84 X10e (3.90-5.60); RED CELL DISTRIBUTION WIDTH 18.8 % (11.0-15.5); WHITE BLOOD COUNT 4.2 X10e3 (4.0-10.5)
[2016-12-25 07:49] LABS: INR 1.1; PARTIAL THROMBOPLASTIN TIME 28.4 SECONDS (23.5-31.3); PROTHROMBIN TIME (PATIENT) 11.9 SECONDS (9.6-11.5)
== END | disposition home or self-care (01) ==
LOC: CIVR 06:58
PROVIDERS: Internal Medicine
PROC: 0W9G3ZX Drainage of Peritoneal Cavity, Percutaneous Approach, Diagnostic (ICD-10-PCS; principal; 2016-12-25)
DX: R18.8 Other ascites (principal)
CPT/HCPCS: 36415; 85027; 85610; 85730

== ENCOUNTER → 2017-01-20 | Outpatient (CLI) | payer MEDICARE ==
--- NOTE | ~2017-01-20 | XA170 ---
[facility] A Service of [facility] RADIOLOGY TEXT RESULTS PATIENT: JOSE CARLOS MOARN LOCATION: [facility] : 36 UNIT #: [id number] AGE: [address]: Medardo Christensen MD SEX: M ORDER DR: [id number] [facility] [address]. [place], [place] [address] [id number] O MR#: [id number] Acc #: [id number] NAME: JOSE CARLOS MORAN : 1935 SEX: M STUDY DATE/TIME: 01/20/2017 7:23 UNIT: [facility] ROOM: STUDY DESCRIPTION: XA Paracentesis W Image Attending Physician: Medardo Christensen M.D. Referring Physician: Medardo Christensen M.D. Ordering Physician: Medardo Christensen M.D. Primary Care Physician: Claudio Gaming M.D. MEDICAL IMAGING REPORT This report is preliminary unless electronic signature is present EXAM Ultrasound-guided paracentesis HISTORY Recurrent ascites. Abdominal distension. TECHNIQUE Procedure explained the patient including risks, benefits and complications. Informed consent was obtained and a formal time-out procedure was utilized. Using sterile technique and following local anesthesia with 1% Xylocaine, a sheath needle was placed into the largest pocket of fluid in the right lower quadrant under ultrasound guidance. Sterile gel and a sterile probe cover were utilized as well as sterile drapes. Permanent ultrasound images were recorded. Total of 9.5 L of fluid was withdrawn and discarded. The patient tolerated the procedure well. IMPRESSION Successful ultrasound-guided paracentesis with 9.5 L of fluid obtained. Dictated by... Gareth Loya M.D. THIS IS AN ELECTRONICALLY VERIFIED REPORT Gareth Loya M.D. at 01/21/2017 6:47 AM GENE/asaf TD: 01/20/2017 17:59 JOB #: [id number] [facility] A Service [facility] RADIOLOGY TEXT RESULTS PATIENT: JOSE CARLOS MORAN LOCATION: [facility] #: [id number] : 36 UNIT #: [id number] AGE: [address]: Medardo Christensen MD SEX: M ORDER DR: MEDICAL IMAGING REPORT Page 1 of 1 COPY
== END | disposition home or self-care (01) ==
LOC: CIVR 06:58
DX: R18.8 Other ascites (principal)

== ENCOUNTER → 2017-02-15 | Outpatient (CLI) | payer MEDICARE ==
--- NOTE | ~2017-02-15 | XA170 ---
[facility] A Service of [facility] & [facility] RADIOLOGY TEXT RESULTS PATIENT: JOSE CARLOS MORAN LOCATION: [facility] : 36 UNIT #: [id number] AGE: [address]: Medardo Christensen MD SEX: M ORDER DR: [id number] [facility] [address]. [place], [place] [address] [id number] O MR#: [id number] Acc #: [id number] NAME: JOSE CARLOS MORAN : 1935 SEX: M STUDY DATE/TIME: 02/15/2017 8:25 UNIT: [facility] ROOM: STUDY DESCRIPTION: XA Paracentesis W Image Attending Physician: Medardo Christensen M.D. Referring Physician: Medardo Christensen M.D. Ordering Physician: Medardo Christensen M.D. Primary Care Physician: Claudio Gaming M.D. MEDICAL IMAGING REPORT This report is preliminary unless electronic signature is present EXAM Ultrasound-guided paracentesis. INDICATIONS Ascites. PROCEDURE The risks, benefits, and alternatives to the procedure were explained to the patient and signed informed consent was obtained. He was placed supine on the stretcher. Preliminary ultrasound of the abdomen was performed, which demonstrated a large volume of ascites. This image was permanently saved and, once skin was marked, patient was prepped and draped in usual sterile fashion. Timeout was performed as per protocol. Skin and subcutaneous tissues were anesthetized with buffered lidocaine. beenz.comeh catheter was advanced into the fluid with aspiration of serous material. Catheter was hooked up to suction tubing and there was evacuation of a total of 11.2 liters of serous material. Catheter was then removed and manual pressure was applied until hemostasis was obtained. IMPRESSION Technically successful ultrasound-guided paracentesis with evacuation of 11.2 L of serous material. Ultrasound was used during the procedure and permanent images were saved. Dictated by... Dorothy Hernandez M.D. THIS IS AN ELECTRONICALLY VERIFIED REPORT Dorothy Hernandez M.D. at 02/17/2017 4:53 PM AFF/pc TD: 02/16/2017 12:56 JOB #: [id number] [facility] A Service of [facility] RADIOLOGY TEXT RESULTS PATIENT: JOSE CARLOS MORAN LOCATION: [facility] : 36 UNIT #: [id number] AGE: [address]: Medardo Christensen MD SEX: M ORDER DR: MEDICAL IMAGING REPORT Page 1 of 1 COPY
[2017-02-15 07:55] LABS: HEMATOCRIT 24.2 % (38.0-50.0); HEMOGLOBIN 7.7 gm/dL (13.0-16.0); MEAN CELL VOLUME 94.8 FL (83-96); MEAN CORPUSCULAR HEMOGLOBIN 30.2 PG (28-34); MEAN CORPUSCULAR HGB CONC 31.9 g/dL (30-36); MEAN PLATELET VOLUME 9.8 FL (6.5-11.5); RED BLOOD COUNT 2.55 X10e (3.90-5.60); RED CELL DISTRIBUTION WIDTH 18.1 % (11.0-15.5); WHITE BLOOD COUNT 4.1 X10e3 (4.0-10.5)
[2017-02-15 08:07] LABS: INR 1.1; PARTIAL THROMBOPLASTIN TIME 26.9 SECONDS (23.5-31.3); PROTHROMBIN TIME (PATIENT) 11.7 SECONDS (10.0-11.7)
== END | disposition home or self-care (01) ==
LOC: CIVR 07:16
PROVIDERS: Internal Medicine
DX: R18.8 Other ascites (principal)
CPT/HCPCS: 36415; 85027; 85610; 85730

== ENCOUNTER 2017-03-04 04:55 | Inpatient (IN) | payer MEDICARE ==
[~2017-03-04] VITALS: Ht 180.3 cm; Wt 79.4 kg
--- NOTE | ~2017-03-04 | CO ---
Unit #: [id number] #: [id number] Patient: JOSE CARLOS SAINZ [id number] [address] [place], [place] [address] [id number] I MR#: [id number] NAME: JOSE CARLOS SAINZ. ROOM: 227 Age: 81 Sex: M Admission Date: 03/04/2017 : 1935 Attending Physician: Laura Krause M.D. Primary Care Physician: Claudio Gaming M.D. Consultation Date: 03/05/2017 CONSULTATION REPORT REFERRING PHYSICIAN Dr. Laura Krause. REASON FOR CONSULTATION Severe anemia, arthritis. HISTORY OF PRESENT ILLNESS Mr. Sainz is an 81-year-old gentleman with cirrhosis of liver diagnosed within this year, says his belly got really tense and big and he was having difficulty breathing. Hence, he came to the hospital yesterday. He had a large volume paracentesis where about 10 L were drained and he is feeling better. He was also noted to have severe anemia, worsening since his last time and hemoglobin dropping to 7.7. Patient says he has no nausea, vomiting, hematemesis. He says no black stool or bright red blood in the stool. He denies any fever or chills either. PAST MEDICAL HISTORY 1. Cirrhosis with most likely ARREGUIN. 2. History of atrial fibrillation. 3. History of end-stage renal disease on dialysis. 4. Chronic systolic heart failure. 5. Diabetes mellitus. ALLERGIES None. FAMILY HISTORY Negative. SOCIAL HISTORY A former smoker. History of moderate alcohol in the past, none for now. MEDICATIONS Medications at home included: 1. Isordil. 2. Aspirin. 3. Calcium. 4. Lipitor. 5. Finasteride. 6. Lisinopril. 7. Amiodarone. 8. Symbicort. 9. Combivent. Unit #: [id number] #: [id number] Patient: JOSE CARLOS SAINZ REVIEW OF SYSTEMS A complete 10-point review of systems was done which is unremarkable other than as mentioned above. PHYSICAL EXAMINATION VITAL SIGNS: Stable. Temperature 97.9, pulse 61, respirations 17, blood pressure 111/46. HEENT: Pupils equal and reactive. Sclerae anicteric. Oral mucosa moist. NECK: No JVD. No lymphadenopathy. CHEST: Clear to auscultation bilaterally. CARDIOVASCULAR: Regular rate and rhythm. No murmurs. ABDOMEN: Significantly distended. No tenderness. No organomegaly. Shifting dullness. EXTREMITIES: Positive extremities without clubbing, cyanosis, or edema. NEUROLOGIC: Intact. SKIN: Warm and dry. DIAGNOSTIC STUDIES LABORATORY: Hemoglobin 7.4, post transfusion 9.9 this morning. Mild LFT abnormalities. Stable creatinine of 6.1, sodium of 138. ASSESSMENT AND PLAN 1. Patient with worsening ascites previously requiring drainage every four weeks. He is a dialysis candidate and hence, not able to take any diuretics. We will increase the frequency of his paracentesis and continue with low-sodium diet and try to take as much fluid off as possible with dialysis. 2. Anemia: Subacute, worsening. History of esophagitis on upper endoscopy about six months ago. I will recommend a repeat upper endoscopy looking for varices or any other upper gastrointestinal source of bleeding. It is multifactorial most likely including from end-stage renal disease, but the source of bleeding still needs to be looked for. 3. Congestive heart failure. 4. Atrial fibrillation. 5. Diabetes mellitus. Thank you, Dr. Krause, for this interesting consult. Will follow along. Dictated by... Zulema Engel/jermaine TD: 03/05/2017 16:29 JOB #: [id number] Unit #: [id number] #: [id number] Patient: JOSE CARLOS SAINZ CONSULTATION REPORT Page 1 of 1 X Medardo Christensen MD CONSULTATION REPORT
--- NOTE | ~2017-03-04 | DS ---
Unit #: [id number] #: [id number] Patient: JOSE CARLOS MORAN [id number] [address] [address] [id number] I MR#: [id number] NAME: JOSE CARLOS MORAN. ROOM: 227 Age: 81 Sex: M Admission Date: 03/04/2017 : 1935 Discharge Date: Attending Physician: Laura Krause M.D. Primary Care Physician: Claudio Gaming M.D. DISCHARGE SUMMARY DISCHARGE DIAGNOSES 1. Cirrhosis with recurrent ascites, status post paracentesis. 2. Anemia, chronic, likely from chronic kidney disease and iron deficiency, status post esophagogastroduodenoscopy which shows mild esophagitis and diffuse gastropathy. 3. Chronic systolic heart failure. 4. Permanent atrial fibrillation. 5. Diabetes mellitus type 2, uncontrolled. 6. History of nonsustained ventricular tachycardia. 7. History of myocardial infarction. 8. Mild cognitive impairment. 9. Hypertension. 10. History of bladder cancer. 11. Hyperlipidemia. 12. Chronic obstructive pulmonary disease. 13. Previous smoking. 14. Tachybrady syndrome. 15. Severe pulmonary hypertension. CONSULTATION Dr. Christensen. PROCEDURES EGD which shows mild esophagitis, diffuse gastropathy. ALLERGIES None. DISCHARGE MEDICATIONS 1. Symbicort 160 mcg, one puff inhalation b.i.d. 2. Duo-Nebs inhalation three times daily. 3. Amiodarone 200 daily. 4. Ethyl chloride, one spray topically as needed during dialysis. 5. Lipitor 40 daily. 6. Lisinopril 5 mg p.o. daily. 7. Avodart 0.5 mg at bedtime. 8. Proscar 5 mg daily. 9. Aspirin 81 daily. 10. Calcium acetate 667 mg, four tablets three times daily with meals. 11. Isosorbide dinitrate 20 mg p.o. b.i.d. 12. Nitroglycerin 0.4 sublingual p.r.n. chest pain. 13. Protonix 40 p.o. daily. HOSPITALIZATION COURSE Unit #: [id number] #: [id number] Patient: JOSE CARLOS MORAN 81-year-old admitted because of ascites. Cirrhosis with recurrent ascites, status post paracentesis. Removed around 10 liters by interventional radiology. Currently, abdomen is soft. Patient was seen by Dr. Christensen. Okay to discharge patient. Anemia, acute on chronic, likely iron deficiency and also from chronic kidney disease. Patient had EGD which did not show any bleeding, which did show gastritis and esophagitis. Patient will receive Protonix, prescription given. Discharge home. Follow with family physician in one week time. Follow up with Dr. Christensen in six weeks time. Dictated by... Zulema Moncada/inge TD: 03/05/2017 11:46 JOB #: [id number] DISCHARGE SUMMARY Page 1 of 1 X Laura Krause MD X DISCHARGE SUMMARY
--- NOTE | ~2017-03-04 | OR ---
Unit #: [id number] #: [id number] Patient: JOSE CARLOS MORAN [id number] [address] [address] [id number] I MR#: [id number] NAME: JOSE CARLOS MORAN. ROOM: [facility] Date of Procedure: 03/05/2017 Admission Date: 03/04/2017 Surgeon: Medardo Christensen M.D. : 1935 Attending Physician: Laura Krause M.D. Primary Care Physician: Claudio Gaming M.D. OPERATIVE REPORT PROCEDURE PERFORMED Esophagogastroduodenoscopy with biopsy. INDICATIONS FOR PROCEDURE The patient with severe anemia, history of liver cirrhosis. MEDICATIONS Monitored anesthesia. POSTOPERATIVE FINDINGS 1. No varices. 2. Mild esophagitis consistent with LA grade A. 3. Diffuse gastropathy. Biopsies taken. 4. Duodenitis. Biopsies taken. PLAN Follow up on the pathology report. Continue PPI therapy. DESCRIPTION OF PROCEDURE The patient was explained of the procedure, risks, and benefits along with risks and benefits of anesthesia. He was brought to the endoscopy room. Propofol anesthesia was given. Bite block was placed. The scope was passed down the mouth into esophagus, stomach, duodenum, and distal duodenum. Findings as described. Biopsies were taken. Gently, I pulled it out of the patient's mouth. He tolerated it well. Dictated by... Zulema Engel/romel TD: 03/05/2017 14:47 JOB #: [id number] Unit #: [id number] #: [id number] Patient: JOSE CARLOS MORAN OPERATIVE REPORT Page 1 of 1 X Medardo Christensen MD X PROCEDURE OPERATIVE NOTE
--- NOTE | ~2017-03-04 | CO ---
Unit #: [id number] #: [id number] Patient: JOSE CARLOS SAINZ [id number]. [place], [place] [address] [id number] I MR#: [id number] NAME: JOSE CARLOS SAINZ ROOM: 227 Age: 81 Sex: M Admission Date: 03/04/2017 : 1935 Attending Physician: Laura Krause M.D. Primary Care Physician: Claudio Gaming M.D. Consultation Date: 03/04/2017 CONSULTATION REPORT REASON FOR CONSULTATION Dialysis needs. HISTORY OF PRESENT ILLNESS Mr. Sainz is an 81-year-old male whom I see at the [facility] dialysis unit on Wednesday, , Wednesday shift who was admitted with complaints of abdominal distention and shortness of breath. Patient has known cirrhosis and ascites and has been getting paracentesis with large volumes about every four weeks. He states that when his abdomen gets distended, it does make it difficult to breath. He came to the ER today instead of going to the dialysis unit and I called in dialysis orders when notified. He has already ran day and got two units of blood for anemia. He is on his way down for a paracentesis now. He denies any chest pain. He does have some chronic shortness of breath from COPD and is oxygen dependent. He denies any fevers or chills. He admits to feeling better after his blood transfusion. PAST MEDICAL HISTORY Significant for end stage renal disease, history of cirrhosis, with regular paracentesis need, a history of AFib, anemia of chronic disease, systolic congestive heart failure with anemia of 40%, pulmonary hypertension, history of nonsustained V-tach, history of [place], type 2 diabetes, history of hypertension, history of bladder cancer, hyperlipidemia, prior tobacco abuse. PAST SURGICAL HISTORY He has had a left arm fistula, cataract surgery, hernia repair, and bladder tumor removal. HOME MEDICATIONS Isordil 10 mg b.i.d.; baby aspirin daily; PhosLo 3 times a day; Lipitor 40 mg a day; Proscar 5 mg daily; dutasteride 0.5 mg at bedtime; lisinopril 5 mg a day; amiodarone 200 mg a day; Symbicort inhaler, Combivent inhaler, Nitrostat p.r.n. ALLERGIES No known drug allergies. FAMILY HISTORY Significant for hypertension and negative for kidney disease. SOCIAL HISTORY Patient has supportive family. He is a former smoker. No current alcohol or drug use. Unit #: [id number] #: [id number] Patient: JOSE CARLOS SAINZ REVIEW OF SYSTEMS A complete 12 point review of systems was completed with the above findings. In addition he denies any headaches. No known bleeding. No nosebleed, sore throat or earache. No palpitations. No hemoptysis. No nausea or vomiting. No bright red blood per rectum or melena. No hematuria. Mild swelling in his legs. No flank pain. No fevers. No night sweats or hot flashes. No intolerance to heat or cold. He has gained weight with the accumulation of ascites in his abdomen. Unless otherwise indicated, the review of systems was negative. PHYSICAL EXAMINATION VITAL SIGNS: The patient is afebrile. Pulse 61, respiratory rate 17, blood pressure 111/46. GENERAL: This is an 81-year-old male who is alert, answers questions appropriately and is in no acute distress. HEENT: Head is atraumatic, normocephalic. Eyes show pale conjunctivae. Nose shows no nasal drainage or nose bleed. Oropharynx is moist without thrush. NECK: Shows no rigidity. HEART: Irregular with regular rate. No rub. Does have a soft murmur. LUNGS: Mostly clear with some left basilar rales that clear with cough, breathing is nonlabored and on oxygen. ABDOMEN: Shows tense distention with ascites. Bowel sounds are present. EXTREMITIES: No lower extremity clubbing or cyanosis. He has trace to +1 ankle edema bilaterally. SKIN: Dry with no rashes. VASCULAR EXAM: Patient does have a fistula in place in his arm with good bruit and thrill. MUSCULOSKELETAL EXAM: No CVA tenderness to palpation. LYMPHATIC EXAM: There is no neck cervical lymphadenopathy. PSYCHIATRIC EXAM: Mood and affect appear normal. DIAGNOSTIC STUDIES IMAGING STUDIES: Chest x-ray showed no acute findings. LABORATORY STUDIES: Hemoglobin this morning was 7.4, platelet count 118. Chemistry showed a potassium of 4, bicarb 29, creatinine 6.1, albumin was low at 2.5 and his INR was 1.1. ASSESSMENT AND PLAN 1. End stage renal disease. Patient has already received dialysis today and we will continue his normal Wednesday, , Wednesday schedule while here. 2. Anemia. This is an acute on chronic issues. He is on maximum Mircera dosing at the dialysis unit, as well as IV iron. He did get a transfusion of two units while on dialysis. I did review his most recently EGD and colonoscopy that showed some polyps and also some esophagitis and gastropathy. No varices were seen. I will defer to Dr. Christensen if another EGD is needed. 3. Cirrhosis with ascites with paracentesis pending. 4. COPD on oxygen. 5. History of AFib on amiodarone. 6. History of congestive heart failure with mitral regurgitation and pulmonary hypertension. Patient appears compensated pulmonary-vincent. Would like to thank Dr. Krause for this consult and the opportunity to participate in the evaluation and care of Mr. Sainz. Unit #: [id number] #: [id number] Patient: JOSE CARLOS SAINZ Dictated by... Garret Mederos Jr., Zulema MARION/julio c TD: 03/05/2017 09:31 JOB #: [id number] CONSULTATION REPORT Page 1 of 1 X Garret Mederos MD X CONSULTATION REPORT
--- NOTE | ~2017-03-04 | EKG ---
PATIENT: JOSE CARLOS MORAN UNIT #: [id number] Ventricular Rate: 51 BPM Atrial Rate: 51 BPM P-R Interval: 80 ms QRS Duration: 146 ms Q-T Interval: 522 ms QTC Calculation(Bezet): 481 ms P [place]: -6 degrees Calculated R [place]: -74 degrees Calculated T [place]: -67 degrees Diagnosis Line: Atrial fibrillation Diagnosis Line: severe bradycardia,pvc Diagnosis Line: Left axis deviation Diagnosis Line: Right bundle branch block Diagnosis Line: Septal infarct , age undetermined Diagnosis Line: T wave abnormality, consider inferolateral Diagnosis Line: ischemia Diagnosis Line: Abnormal ECG Diagnosis Line: No previous ECGs available Diagnosis Line: Confirmed by AMELIA SINGH MD ([id number]) on 03/04/2017 Diagnosis Line: 6:52:34 PM INTERPRETING MD: FRANCISCO KIRKLAND
--- NOTE | ~2017-03-04 | XA170 ---
[facility] A Service of [facility] & [facility] RADIOLOGY TEXT RESULTS PATIENT: JOSE CARLOS MORAN LOCATION: A : 36 UNIT #: [id number] AGE: [address]: Laura Krause MD SEX: M ORDER DR: [id number] [facility] [address]. [place], [place] [address] [id number] I MR#: [id number] Acc #: [id number] NAME: JOSE CARLOS MORAN. : 1935 SEX: M STUDY DATE/TIME: 03/04/2017 14:48 UNIT: [facility] ROOM: [facility] STUDY DESCRIPTION: XA Paracentesis W Image Attending Physician: Laura Krause M.D. Ordering Physician: Laura Krause M.D. Primary Care Physician: Claudio Gaming M.D. MEDICAL IMAGING REPORT This report is preliminary unless electronic signature is present EXAM Ultrasound-guided paracentesis INDICATION Ascites. Most recent paracentesis was February 15, 2017. PROCEDURE The risks, benefits, and alternatives to the procedure were explained to the patient, and signed, informed consent was obtained. He was placed supine on the stretcher. Preliminary ultrasound of the abdomen was performed which demonstrated a large volume of ascites. This image was permanently saved. Overlying skin was marked. Patient was prepped and draped in the usual sterile fashion. Time-out was performed as per protocol. Skin and subcutaneous tissues were anesthetized with buffered lidocaine and a Leap Motioneh catheter was advanced into the fluid with aspiration of serous material. The catheter was hooked to suction tubing and there was evacuation of a total of 10.9 L of serous material. Catheter was then removed and manual pressure was applied until hemostasis was obtained. IMPRESSION Technically successful ultrasound-guided paracentesis with evacuation 10.9 L of serous material. Ultrasound was used during the procedure and permanent images were saved. Dictated by... Dorothy Hernandez M.D. THIS IS AN ELECTRONICALLY VERIFIED REPORT Dorothy Hernandez M.D. at 03/05/2017 4:55 PM AFF/mjs [facility] A Service of [facility] & [facility] RADIOLOGY TEXT RESULTS PATIENT: JOSE CARLOS MORAN LOCATION: A 227-01 : 36 UNIT #: [id number] AGE: [address]: Laura Krause MD SEX: M ORDER DR: TD: 03/05/2017 12:28 JOB #: [id number] MEDICAL IMAGING REPORT Page 1 of 1 COPY
--- NOTE | ~2017-03-04 | HP ---
Unit #: [id number] #: [id number] Patient: JOSE CARLOS MORAN [id number] [address] [place], [place] [address] [id number] I MR#: [id number] NAME: JOSE CARLOS MORAN. ROOM: 227 Age: 81 Sex: M Admission Date: 03/04/2017 : 1935 Attending Physician: Laura Krause M.D. Primary Care Physician: Claudio Gaming M.D. HISTORY AND PHYSICAL CHIEF COMPLAINT Ascites. HISTORY OF PRESENT ILLNESS This is an 81-year-old with a history of cirrhosis admitted because of abdominal distention. According to him, he usually has his paracentesis every month but since two weeks, his abdomen is getting big, so he came to the emergency room. He has shortness of breath. No dizziness. No syncope. No nausea vomiting, diarrhea or constipation. No bleeding. PAST MEDICAL HISTORY 1. History of cirrhosis with ascites with multiple paracentesis. 2. Permanent atrial fibrillation. 3. End stage renal disease on hemodialysis. 4. Anemia likely from chronic kidney disease. 5. Chronic systolic heart failure with ejection fraction of 40% to 45%. 6. Nonsustained ventricular tachycardia. 7. History of MN. 8. Mild cognitive impairment. 9. Diabetes mellitus type 2, noninsulin dependent. 10. Hypertension. 11. History of bladder cancer. 12. History of hyperlipidemia. 13. COPD. 14. Previous smoking. 15. Tachybrady syndrome. 16. Pulmonary hypertension, severe. PAST SURGICAL HISTORY 1. Bladder tumor removed on multiple sessions. 2. Inguinal hernia repair. 3. Left arm shunt. 4. Cataract surgery. ALLERGIES None. FAMILY HISTORY Positive for hypertension. SOCIAL HISTORY Lives with family. Former smoker, currently no smoking, no alcohol, and no drugs. Unit #: [id number] #: [id number] Patient: JOSE CARLOS MORAN CURRENT HOME MEDICATIONS 1. Isordil 10 mg p.o. b.i.d. 2. Aspirin 81 daily. 3. Calcium acetate 667 mg p.o. 3 times daily. 4. Lipitor 40 daily. 5. Finasteride 5 mg at bedtime. 6. Dutasteride 0.5 mg at bedtime. 7. Lisinopril 5 mg daily. 8. Amiodarone 200 mg p.o. daily. 9. Symbicort 160 mcg 1 puff inhalation b.i.d. 10. Combivent inhalation 3 times daily. 11. Nitrostat 0.4 sublingual p.r.n. 12. Ethyl chloride one spray p.r.n. REVIEW OF SYSTEMS No headache. No visual changes. No weakness, numbness or tingling. No leg swelling. Reviewed twelve point system with him, which was negative except as in HPI. PHYSICAL EXAMINATION VITAL SIGNS: Temperature 97.9, pulse 61, respirations 17, blood pressure 111/46. GENERAL: 81-year-old lying on bed. Currently having dialysis and having blood transfusion. Alert and oriented x3. HEENT: Eyes - Pupils equally reactive to light and accommodation. Pallor present. No active (1) . Dry mucosa present. NECK: Supple. HEART: S1 and S2 heard. LUNGS: Decreased breath sounds. Clear to auscultation. ABDOMEN: Distended and fluid present. Bowel sounds are present, cannot appreciate hepatosplenomegaly. EXTREMITIES: Trace pedal edema present. NEUROLOGIC: No focal neurological deficits. DIAGNOSTIC STUDIES LABORATORY DATA: INR 1.1, troponins negative. Sodium 138, potassium 4.0, creatinine 6.1, AST 18, ALT 18, alk phos 254, albumin 2.5. WBC 5.0, hemoglobin 7.4, platelets 118. IMAGING STUDIES: Chest x-ray negative. ASSESSMENT AND PLAN 81-year-old admitted because of ascites. 1. Cirrhosis with recurrent ascites. I am going to ask interventional radiation for therapeutic paracentesis and gastroenterology to see him. 2. Anemia, acute on chronic likely from chronic kidney disease, also iron deficiency. Patient is receiving blood transfusion. Monitor closely. Repeat CBC. 3. End stage renal disease. Continue with hemodialysis. 4. Chronic systolic heart failure ejection fraction 40% stable. 5. Permanent atrial fibrillation, currently rate control monitor. 6. Diabetes mellitus type 2, continue with the Accu-Cheks a.c. and h.s. Currently blood sugar is well controlled. Dictated by Unit #: [id number] #: [id number] Patient: JOSE CARLOS MORAN M.D. KJ/ts TD: 03/04/2017 12:26 JOB #: [id number] HISTORY AND PHYSICAL Page 1 of 1 X Laura Krause MD HISTORY AND PHYSICAL
--- NOTE | ~2017-03-04 | CR72 ---
[facility] A Service of [facility] & [facility] RADIOLOGY TEXT RESULTS PATIENT: JOSE CARLOS MORAN LOCATION: [facility] : 36 UNIT #: [id number] AGE: [address]: Laura Krause MD SEX: M ORDER DR: [id number] [facility] [address] [place], [place] [address] [id number] I MR#: [id number] Acc #: [id number] NAME: JOSE CARLOS MORAN. : 1935 SEX: M STUDY DATE/TIME: 03/04/2017 05:21 UNIT: [facility] ROOM: [facility] STUDY DESCRIPTION: CR Chest Single View Portable Attending Physician: Laura Krause M.D. Ordering Physician: Benson Bautista M.D. Primary Care Physician: Claudio Gaming M.D. MEDICAL IMAGING REPORT This report is preliminary unless electronic signature is present EXAM Portable chest 03/04 at 05:21 INDICATION Shortness of air and weakness with hemoptysis for 2 days. FINDINGS AP portable chest is compared with 10/11/2016. Cardiomegaly is stable. There is extensive atherosclerotic calcification noted. Scattered granulomatous calcifications noted on both sides of the chest. No acute infiltrates are seen, and there is no pneumothorax. IMPRESSION Cardiomegaly and atherosclerotic disease with old granulomatous disease. No acute findings in the chest. Dictated by... Gareth Moran Jr., M.D. THIS IS AN ELECTRONICALLY VERIFIED REPORT Gareth Moran Jr., M.D. at 03/05/2017 12:53 AM REJI/joey TD: 03/04/2017 10:09 JOB #: [id number] MEDICAL IMAGING REPORT Page 1 of 1 COPY
[~2017-03-04 04:55] MED LIST changes: -AMIODARONE HCL200 MG PO; -CALCIUM ACETAT667 M2 PO; -CHEWABLE ASPIRI81 MG PO; -DUTASTERIDE0.5 MG PO; -ETHYL CHLORI103.5 ML TOP; -ISORDIL10 MG PO; -PROTONIX PO
[2017-03-04 05:33] LABS: BASOPHIL% 0.7 % (0-2.5); EOSINOPHIL# 0.1 X10e3 (0-0.7); HEMATOCRIT 23.9 % (38.0-50.0); HEMOGLOBIN 7.4 gm/dL (13.0-16.0); LYMPHOCYTE# 0.4 X10e3 (1.0-3.5); MEAN CELL VOLUME 90.9 FL (83-96); MEAN CORPUSCULAR HEMOGLOBIN 28.2 PG (28-34); MEAN PLATELET VOLUME 10.5 FL (6.5-11.5); MONOCYTE# 0.4 X10e3 (0-1.0); MONOCYTE% 8.6 % (3.0-12.0); NEUTROPHIL# 3.9 X10e3 (1.5-7.1); NEUTROPHIL% 78.7 % (40-75); PLATELET COUNT 118 X10e3 (140-420); RED BLOOD COUNT 2.63 X10e (3.90-5.60)
[2017-03-04 05:35] LABS: DIFF IND YES
[2017-03-04 05:38] LABS: INR 1.1; PARTIAL THROMBOPLASTIN TIME 26.1 SECONDS (23.5-31.3); PROTHROMBIN TIME (PATIENT) 11.9 SECONDS (10.0-11.7)
[2017-03-04 05:42] LABS: POC - CKMB 5.4 ng/mL (0.0-7.9); POC - TROPONIN <0.05 ng/mL (<=0.05)
[2017-03-04 05:50] LABS: ALBUMIN SERUM 2.5 g/dL (3.5-5.0); BILIRUBIN, DIRECT 0.1 mg/dL (0.0-0.2); BILIRUBIN,INDIRECT 0.4 mg/dL (0.0-0.9); BILIRUBIN,TOTAL 0.5 mg/dL (0.2-2.0); BUN/CREATININE RATIO 8.68; CALCIUM SERUM 8.1 mg/dL (8.4-10.2); CREATININE SERUM 6.1 mg/dL (0.6-1.4); PROTEIN TOTAL SERUM 6.4 g/dL (6.0-8.3)
[2017-03-04 05:57] LABS: ANISOCYTOSIS SL; PLATELET ESTIMATE DECREASED (NORMAL)
[2017-03-04 05:58] LABS: HYPOCHROMIA SL
[2017-03-04] MEDS ORDERED: CHEWABLE ASPIRI81 MG PO (07:18)
[2017-03-04] MEDS ORDERED: ISORDIL10 MG PO (07:18)
[2017-03-04] MEDS ORDERED: CALCIUM ACETAT667 M2 PO (07:19)
[2017-03-04] MEDS ORDERED: LIPITOR40 MG PO (07:19)
[2017-03-04] MEDS ORDERED: FINASTERIDE5 M1 PO (07:20)
[2017-03-04] MEDS ORDERED: AMIODARONE HCL200 MG PO (07:21)
[2017-03-04] MEDS ORDERED: LISINOPRIL5 MG PO (07:21)
[2017-03-04] MEDS ORDERED: DUTASTERIDE0.5 MG PO (07:21)
[2017-03-04] MEDS ORDERED: COMBIVENT RESPIM4 GM INH (07:22)
[2017-03-04] MEDS ORDERED: SYMBICORT INH (07:22)
[2017-03-04] MEDS ORDERED: NITROSTAT0.4 MG SL (07:25)
[2017-03-04] MEDS ORDERED: ETHYL CHLORI103.5 ML TOP (07:27)
[2017-03-05 08:20] LABS: HEMATOCRIT 30.3 % (38.0-50.0); MEAN CELL VOLUME 90.1 FL (83-96); MEAN CORPUSCULAR HEMOGLOBIN 29.4 PG (28-34); MEAN CORPUSCULAR HGB CONC 32.7 g/dL (30-36); MEAN PLATELET VOLUME 10.2 FL (6.5-11.5); RED BLOOD COUNT 3.37 X10e (3.90-5.60); RED CELL DISTRIBUTION WIDTH 17.5 % (11.0-15.5); WHITE BLOOD COUNT 5.3 X10e3 (4.0-10.5)
[2017-03-05 08:22] LABS: HEMOGLOBIN 9.9 gm/dL (13.0-16.0)
[2017-03-05] MEDS ORDERED: PROTONIX PO (11:40)
[2017-03-05 14:06] LABS: ALBUMIN SERUM 2.2 g/dL (3.5-5.0); BILIRUBIN,TOTAL 0.5 mg/dL (0.2-2.0); BUN/CREATININE RATIO 5.92; CALCIUM SERUM 7.8 mg/dL (8.4-10.2); CREATININE SERUM 5.4 mg/dL (0.6-1.4); GLOM FILT RATE Estimated 9.2 mL/min (>60); POTASSIUM 4.7 mmol/L (3.5-5.1); PROTEIN TOTAL SERUM 5.6 g/dL (6.0-8.3)
== END 2017-03-05 12:17 | disposition home or self-care (01) | DRG 432 ==
LOC: CED 04:55 → CEDOF 06:58 → C2A 07:44 → CED 07:44 → CEDOF 07:44 → C2A 08:07
PROVIDERS: Emergency Medicine; Internal Medicine
PROC: 5A1D00Z (ICD-10-PCS; 2017-03-04)
PROC: 30233N1 Transfusion of Nonautologous Red Blood Cells into Peripheral Vein, Percutaneous Approach (ICD-10-PCS; 2017-03-04)
PROC: 0W9G3ZZ Drainage of Peritoneal Cavity, Percutaneous Approach (ICD-10-PCS; 2017-03-04)
PROC: 0DB98ZX Excision of Duodenum, Via Natural or Artificial Opening Endoscopic, Diagnostic (ICD-10-PCS; principal; 2017-03-05 09:51)
PROC: 0DB68ZX Excision of Stomach, Via Natural or Artificial Opening Endoscopic, Diagnostic (ICD-10-PCS; 2017-03-05 09:51)
DX: K74.60 Unspecified cirrhosis of liver (principal); N18.6 End stage renal disease; I13.2 Hypertensive heart and chronic kidney disease with heart failure and with stage 5 chronic kidney disease, or end stage renal disease; R18.8 Other ascites; E11.65 Type 2 diabetes mellitus with hyperglycemia; I27.2 Other secondary pulmonary hypertension; I49.5 Sick sinus syndrome; I50.22 Chronic systolic (congestive) heart failure; I47.1 Supraventricular tachycardia; D63.1 Anemia in chronic kidney disease; Z99.2 Dependence on renal dialysis; I48.2 Chronic atrial fibrillation; Z85.51 Personal history of malignant neoplasm of bladder; E78.5 Hyperlipidemia, unspecified; J44.9 Chronic obstructive pulmonary disease, unspecified; Z87.891 Personal history of nicotine dependence; I25.2 Old myocardial infarction; K20.9 Esophagitis, unspecified; K29.70 Gastritis, unspecified, without bleeding; G31.84 Mild cognitive impairment of uncertain or unknown etiology; Z82.49 Family history of ischemic heart disease and other diseases of the circulatory system; Z79.82 Long term (current) use of aspirin; Z99.81 Dependence on supplemental oxygen; K29.80 Duodenitis without bleeding
CPT/HCPCS: 36415; 71010; 80048; 80053; 80076; 82553; 82947; 83690; 84484; 85025; 85027; 85610; 85730; 86850; 86900; 86901; 86923; 88305; 88312; 93005; 94640; 94664; 99285; P9016

== ENCOUNTER → 2017-03-24 | Outpatient (CLI) | payer MEDICARE ==
[~2017-03-24] MED LIST changes: +AMIODARONE HCL200 MG PO; +CALCIUM ACETAT667 M2 PO; +CHEWABLE ASPIRI81 MG PO; +DUTASTERIDE0.5 MG PO; +ETHYL CHLORI103.5 ML TOP; +ISORDIL10 MG PO; +PROTONIX PO
--- NOTE | ~2017-03-24 | XA170 ---
[facility] A Service of [facility] RADIOLOGY TEXT RESULTS PATIENT: JOSE CARLOS MORAN LOCATION: [facility] #: [id number] : 36 UNIT #: [id number] AGE: [address]: Medardo Christensen MD SEX: M ORDER DR: [id number] [id number] [facility]. [place], [place] [address] [id number] O MR#: [id number] Acc #: [id number] NAME: JOSE CARLOS MORAN : 1935 SEX: M STUDY DATE/TIME: 03/24/2017 7:29 UNIT: [facility] ROOM: STUDY DESCRIPTION: XA Paracentesis W Image Attending Physician: Medardo Christensen M.D. Ordering Physician: Medardo Christensen M.D. Primary Care Physician: Claudio Gaming M.D. MEDICAL IMAGING REPORT This report is preliminary unless electronic signature is present EXAM Ultrasound guided paracentesis INDICTION Ascites PROCEDURE The risks, benefits, and alternatives to the procedure were explained to the patient, and signed, informed consent was obtained. He was placed supine on the stretcher and preliminary ultrasound of the abdomen was performed which demonstrated a large amount of ascites. This image was permanently saved. The overlying skin was marked. The patient was prepped and draped in the usual sterile fashion. Time-out was performed as per protocol. Skin and subcutaneous tissues were anesthetized with buffered lidocaine and a Yueh catheter was advanced into fluid with aspiration of serous material. The catheter was hooked to suction tubing and there was evacuation of a total of 11.9 liters of serous material. The catheter was the removed and manual pressure was applied until hemostasis was obtained. IMPRESSION Technically successful ultrasound guided paracentesis with evacuation 11.9 liters of serous material. Ultrasound was used during the procedure and permanent images were saved. Dictated by... Dorothy Hernandez M.D. THIS IS AN ELECTRONICALLY VERIFIED REPORT [facility] A Service of [facility] RADIOLOGY TEXT RESULTS PATIENT: JOSE CARLOS MORAN [facility] #: [id number] : 36 UNIT #: [id number] AGE: [address]: Medardo Christensen MD SEX: M ORDER DR: Dorothy Hernandez M.D. at 03/25/2017 2:43 PM AFF/laury TD: 03/25/2017 12:55 JOB #: [id number] MEDICAL IMAGING REPORT Page 1 of 1 COPY
== END | disposition home or self-care (01) ==
LOC: CIVR 07:05
DX: R18.8 Other ascites (principal)